=== PATIENT | male | born 1960 | race African-American/Black ===

== ENCOUNTER 2016-11-25 11:00 | Outpatient (CLI) | payer OTHER ==
--- NOTE | 2016-11-25 13:58 | SJPRAD ---
CHEST TWO VIEWS: HISTORY: Cough. COMPARISON: None. FINDINGS: Normal cardiac silhouette. The pulmonary vessels and hilum are normal. The costophrenic angles are clear. No masses or consolidation. No pneumothorax or osseous abnormalities. IMPRESSION: No acute cardiopulmonary process.. POS: [facility]
--- NOTE | 2016-11-25 14:00 | SJPRAD ---
TWO VIEWS RIGHT HIP: HISTORY: Right hip pain. COMPARISON: None. FINDINGS: The contour of the femoral head is maintained. Mild loss of inferior medial joint space height. No fracture. IMPRESSION: Mild loss of inferior medial right hip joint space height. No fracture. POS: [facility]
== END 2016-11-25 11:01 | disposition home or self-care (01) ==
LOC: MWLC RAD 11:00
PROVIDERS: ATTEND Family Medicine
DX: R05 Cough (principal); M25.551 Pain in right hip

== ENCOUNTER 2017-09-14 10:12 | Emergency (ER) | payer OTHER ==
[2017-09-14 11:04] LABS: Red Blood Cell (RBC) Count 4.74 mill/uL (4.70-6.10)
[2017-09-14 11:09] LABS: Mean Corpuscular Hemoglobin 31.7 pg (27.0-31.0); Mean Corpuscular Volume 86.1 fL (78.0-98.0)
[2017-09-14 11:10] LABS: Mean Corpuscular HGB CONC 36.9 g/dL (32.0-36.0); Platelet Count 187 thou/uL (130-400); RBC Distribution Width 12.1 % (11.5-14.5)
[2017-09-14 11:11] LABS: #Eosinphils 0.2 thou/uL (0.0-0.7); #Lymphocytes 2.6 thou/uL (1.20-3.40); #Monocytes 0.6 thou/uL (0.11-0.59); #Neutrophils 7.5 thou/uL (1.40-6.50); %Basophils 0.1 % (0.0-1.0); %Eosinophils 2.1 % (0.0-10.0); %Monocytes 5.6 % (0.0-10.0); %Neutrophils 68.2 % (42.0-75.0); Mean Platelet Volume 12.1 fL (7.4-10.4)
[2017-09-14 11:17] LABS: Albumin 4.3 g/dL (3.5-5.0); Anion Gap 15 mmol/L (10-20); BUN (Urea Nitrogen) 17 mg/dL (8.4-25.7); Bilirubin, Total 0.5 mg/dL (0.2-1.2); Calc. Creatinine Clearance 0 mL/min (70-130); Calcium 9.8 mg/dL (7.8-10.44); Carbon Dioxide 26 mmol/L (22-29); Chloride 92 mmol/L (98-107); Estimated GFR-MDRD 64; Globulin 2.9 g/dL (2.4-3.5); Protein, Total 7.2 g/dL (6.0-8.3); Sodium 128 mmol/L (136-145)
[2017-09-14 11:18] LABS: ALT (SGPT) 28 U/L (8-55); AST (SGOT) 24 U/L (5-34); Alkaline Phosphatase 94 U/L (40-150)
[2017-09-14 11:21] LABS: Glucose 673 mg/dL (70-105)
[2017-09-14] MEDS ORDERED: Insulin Regular 300 UNITS/3 ML VIAL ONE (11:32)
[2017-09-14] MEDS ORDERED: Water For Injection,Sterile 20 ML ONE (11:53)
[2017-09-14] MEDS ORDERED: Ziprasidone 20 MG VIAL ONE (11:53)
== END 2017-09-14 14:06 | disposition home or self-care (01) ==
LOC: ERS 10:12
DX: E10.65 Type 1 diabetes mellitus with hyperglycemia (principal); I10 Essential (primary) hypertension; E78.5 Hyperlipidemia, unspecified; F17.210 Nicotine dependence, cigarettes, uncomplicated; Z71.6 Tobacco abuse counseling; Z79.899 Other long term (current) drug therapy
CPT/HCPCS: 36415; 36416; 80053; 85025; 96361; 96372; 96374; 99406; J1815; J3486

== ENCOUNTER 2018-02-20 16:08 | Outpatient (CLI) | payer OTHER ==
--- NOTE | 2018-02-20 17:33 | RAD ---
CHEST TWO VIEWS: HISTORY: Reactive airways disease. COMPARISON: Chest radiograph from 11/25/2016. FINDINGS: The lungs are without focal confluent air space consolidation, pneumothorax, or effusion. The lungs are slightly hyperinflated. No acute osseous abnormality. IMPRESSION: Lung hyperinflation, suggesting obstructive pulmonary disease. POS: [facility]
== END 2018-02-20 16:09 | disposition home or self-care (01) ==
LOC: BICRAD 16:08
PROVIDERS: ATTEND Internal Medicine
DX: J45.50 Severe persistent asthma, uncomplicated (principal); R91.8 Other nonspecific abnormal finding of lung field
CPT/HCPCS: 71046

== ENCOUNTER 2018-05-14 14:31 | Outpatient (CLI) | payer OTHER ==
--- NOTE | 2018-05-14 15:59 | RAD ---
PA AND LATERAL CHEST: HISTORY: Cough. Reactive airways disease. COMPARISON: 02/20/2018 FINDINGS: Heart size is within normal limits. There are atherosclerotic changes of the aorta. The lungs are c lear of any infiltrative process. I do not appreciate any interval change since the prior exam. IMPRESSION: Some chronic appearing lung change. Stable examination. POS: [facility]
== END 2018-05-14 14:32 | disposition home or self-care (01) ==
LOC: BICRAD 14:31
PROVIDERS: ATTEND Internal Medicine
DX: J45.50 Severe persistent asthma, uncomplicated (principal)
CPT/HCPCS: 71046

== ENCOUNTER 2018-05-18 06:51 | Outpatient (CLI) | payer OTHER ==
--- NOTE | 2018-05-18 07:31 | ULT ---
ABDOMINAL AORTIC ULTRASOUND WITH ARITA SCALE AND DOPPLER COLOR FLOW IMAGING AND SPECTRAL ANALYSIS: CLINICAL HISTORY: Abdominal aortic screening evaluation. FINDINGS: The proximal abdominal aorta measures 2.2 cm in diameter, mid abdominal aorta 1.2 cm in diameter, and distal abdominal aorta 1.4 cm in diameter. There is scattered atherosclerosis. IMPRESSION: No sonographic evidence of abdominal aortic aneurysm is demonstrated. POS: [facility]
== END 2018-05-18 06:52 | disposition home or self-care (01) ==
LOC: SCSULT 06:51
PROVIDERS: ATTEND Internal Medicine
DX: J45.50 Severe persistent asthma, uncomplicated (principal); R09.89 Other specified symptoms and signs involving the circulatory and respiratory systems
CPT/HCPCS: 76706

== ENCOUNTER 2018-06-15 12:57 | Emergency (ER) | payer OTHER ==
[2018-06-15 13:30] LABS: #Eosinphils 0.1 thou/uL (0.0-0.7); #Lymphocytes 1.4 thou/uL (1.20-3.40); #Monocytes 0.4 thou/uL (0.11-0.59); #Neutrophils 5.6 thou/uL (1.40-6.50); %Basophils 0.5 % (0.0-1.0); %Eosinophils 0.7 % (0.0-10.0); %Lymphocytes 19.1 % (21.0-51.0); %Monocytes 5.4 % (0.0-10.0); %Neutrophils 74.3 % (42.0-75.0); Hemoglobin 15.1 g/dL (14.0-18.0); Mean Corpuscular HGB CONC 34.3 g/dL (32.0-36.0); Mean Corpuscular Hemoglobin 31.2 pg (27.0-31.0); Mean Corpuscular Volume 90.9 fL (78.0-98.0); Mean Platelet Volume 9.3 fL (7.4-10.4); Platelet Count 177 thou/uL (130-400); RBC Distribution Width 12.8 % (11.5-14.5); Red Blood Cell (RBC) Count 4.84 mill/uL (4.70-6.10); White Blood Cell (WBC) Count 7.5 thou/uL (4.8-10.8)
[2018-06-15 13:40] LABS: Carbon Dioxide 25 mmol/L (22-29)
[2018-06-15 13:52] LABS: ALT (SGPT) 19 U/L (8-55); AST (SGOT) 17 U/L (5-34); Acetaminophen Less than 6.0 mcg/mL (10.0-30.0); Albumin 4.2 g/dL (3.5-5.0); Alcohol Less than 10 mg/dL (Less than 10); Alkaline Phosphatase 101 U/L (40-150); Anion Gap 17 mmol/L (10-20); BUN (Urea Nitrogen) 24 mg/dL (8.4-25.7); Bilirubin, Total 0.5 mg/dL (0.2-1.2); Calc. Creatinine Clearance 0 mL/min (70-130); Calcium 9.2 mg/dL (7.8-10.44); Chloride 90 mmol/L (98-107); Estimated GFR-MDRD 65; Globulin 2.8 g/dL (2.4-3.5); Potassium 5.5 mmol/L (3.5-5.1); Salicylate Less than 8.0 mg/dL (15.0-30.0); Sodium 127 mmol/L (136-145)
[2018-06-15 13:55] LABS: Glucose 793 mg/dL (70-105)
--- NOTE | 2018-06-15 14:03 | RAD ---
PORTABLE CHEST 1 VIEW: DATE: 06/15/2018. TIME: 1:34 p.m. HISTORY: Hyperglycemia. FINDINGS: Comparison is made with the exam of 05/14/2018. The heart size is normal. The lungs are expanded without focal areas of consolidation, pneumothorace s, or pleural effusions. There are degenerative changes in the spine. IMPRESSION: No radiographic evidence of acute cardiopulmonary process. POS: [facility]
[2018-06-15] MEDS ORDERED: Insulin Regular 300 UNITS/3 ML VIAL ONE (14:24)
[2018-06-15 14:34] LABS: Bilirubin Negative (Negative); Blood, Urine Negative (Negative); Clarity CLEAR (Clear); Glucose, Urine (Dipstick) >=1000 mg/dL (Negative); Leukocyte Negative (Negative); Nitrite Negative (Negative); Protein, Urine (Dipstick) Negative (Neg-Trace); Specific Gravity, Urine 1.024 (1.002-1.036); Urobilinogen 0.2 mg/dL (0.2-1.0)
== END 2018-06-15 17:41 | disposition home or self-care (01) ==
LOC: ERS 12:57
DX: E10.65 Type 1 diabetes mellitus with hyperglycemia (principal); E78.5 Hyperlipidemia, unspecified; I10 Essential (primary) hypertension; F25.9 Schizoaffective disorder, unspecified; F60.0 Paranoid personality disorder; F17.210 Nicotine dependence, cigarettes, uncomplicated
CPT/HCPCS: 36415; 36416; 71045; 80053; 80307; 81003; 82010; 85025; 96361; 96374; J1815

== ENCOUNTER 2019-03-20 10:15 | Observation (INO) | payer OTHER ==
[2019-03-20 10:57] LABS: Base Excess-Venous 1.9 mmol/L (-2.0 to 3.0); Bicarbonate (HCO3v) 26.8 mmol/L (22.0-28.0); CO2 Tension (PvCO2) 41.7 mmHg (40.0-50.0); Calcium, Ionized 1.07 mmol/L (See Comments:); Chloride 93 mmol/L (98-107); Hemoglobin - Calc 14.7 g/dL (14.0-18.0); Potassium 4.8 mmol/L (3.5-5.1); Sodium 130 mmol/L (138-145); T. Carbon Dioxide 28.1 mmol/L (22.0-28.0); vO2 Saturation-calc 55.2 % (60.0-85.0)
[2019-03-20 11:05] LABS: #Basophils 0.1 thou/uL (0.0-0.2); #Eosinphils 0.1 thou/uL (0.0-0.7); #Lymphocytes 2.5 thou/uL (1.20-3.40); #Monocytes 0.4 thou/uL (0.11-0.59); #Neutrophils 5.2 thou/uL (1.40-6.50); %Basophils 1.4 % (0.0-1.0); %Eosinophils 1.1 % (0.0-10.0); %Lymphocytes 29.9 % (21.0-51.0); %Monocytes 5.2 % (0.0-10.0); %Neutrophils 62.3 % (42.0-75.0); Mean Corpuscular HGB CONC 36.2 g/dL (32.0-36.0); Mean Corpuscular Hemoglobin 31.3 pg (27.0-31.0); Mean Corpuscular Volume 86.5 fL (78.0-98.0); Mean Platelet Volume 9.1 fL (7.4-10.4); Platelet Count 192 thou/uL (130-400); RBC Distribution Width 12.4 % (11.5-14.5); Red Blood Cell (RBC) Count 4.47 mill/uL (4.70-6.10); White Blood Cell (WBC) Count 8.4 thou/uL (4.8-10.8)
[2019-03-20] MEDS ORDERED: Insulin Regular 300 UNITS/3 ML VIAL ONE (11:13)
[2019-03-20 11:31] LABS: Acetaminophen Less than 6.0 mcg/mL (10.0-30.0); Alcohol Less than 10 mg/dL (Less than 10); Salicylate Less than 8.0 mg/dL (15.0-30.0)
[2019-03-20 11:33] LABS: Phosphorus 2.7 mg/dL (2.3-4.7)
[2019-03-20 11:34] LABS: ALT (SGPT) 16 U/L (8-55); AST (SGOT) 19 U/L (5-34); Albumin 4.1 g/dL (3.5-5.0); Alkaline Phosphatase 78 U/L (40-110); Anion Gap 15 mmol/L (10-20); BUN (Urea Nitrogen) 19 mg/dL (8.4-25.7); Bilirubin, Total 0.5 mg/dL (0.2-1.2); CK (CPK) 73 U/L (30-200); Calc. Creatinine Clearance 0 mL/min (70-130); Calcium 9.2 mg/dL (7.8-10.44); Carbon Dioxide 26 mmol/L (22-29); Chloride 93 mmol/L (98-107); Estimated GFR-MDRD 80; Globulin 2.8 g/dL (2.4-3.5); Glucose 478 mg/dL (70-105); Lipase 74 U/L (8-78); Magnesium 2.2 mg/dL (1.6-2.6); Potassium 5.2 mmol/L (3.5-5.1); Protein, Total 6.9 g/dL (6.0-8.3); Sodium 129 mmol/L (136-145)
[2019-03-20 11:37] LABS: Medtox Reader # READER 4
[2019-03-20 11:38] LABS: Amphetamine Not Detected (NotDetected); Barbiturates Screen Not Detected (NotDetected); Benzodiazepine Screen Not Detected (NotDetected); Cocaine Metabolite Screen Not Detected (NotDetected); Medtox Control Line Valid? VALID (VALID); Methadone Not Detected (NotDetected); Methamphetamine Not Detected (NotDetected); Opiate Screen Not Detected (NotDetected); Oxycodone Screen Not Detected (NotDetected); Phencyclidine (PCP) Not Detected (NotDetected); THC/Cannabinoid Screen Not Detected (NotDetected); Tricyclic Screen Not Detected (NotDetected)
[2019-03-20 13:07] LABS: Bilirubin Negative (Negative); Blood, Urine Negative (Negative); Clarity Clear (Clear); Glucose, Urine (Dipstick) Greater than 1000 mg/dL (Negative); Leukocyte Negative Leu/uL (Negative); Nitrite Negative (Negative); Protein, Urine (Dipstick) Negative (Neg-Trace); Urobilinogen Normal mg/dL (Less than 2)
[2019-03-20] MEDS ORDERED: Nicotine 14 MG PATCH TOP SCH (17:00)
[2019-03-20] MEDS ORDERED: Acetaminophen 325 MG TAB PO PRN (18:16)
[2019-03-20] MEDS ORDERED: Dextrose 5% in Water 1,000 ML IV PRN (18:16)
[2019-03-20] MEDS ORDERED: Dextrose 50% Abboject 50 ML SYRINGE SLOW IVP PRN (18:16)
[2019-03-20] MEDS ORDERED: Ondansetron PF 4 MG/2 ML Vial IVP PRN (18:16)
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
[2019-03-20 19:28] VITALS: BMI 18.1
[2019-03-20] MEDS: Sodium Chloride 0.9% 1,000 ML IV SCH (20:35)
[2019-03-20] MEDS: HumaLOG 300 UNITS/3 ML VIAL SC PRN (20:37)
[2019-03-20] MEDS ORDERED: INSULIN LISPRO 5 UNIT SQ SCH (21:00)
[2019-03-20] MEDS ORDERED: Insulin Glargine 15 UNITS in Pre-Filled Syringe 1 EACH SC SCH (21:00)
[2019-03-20] MEDS ORDERED: Simvastatin 5 MG TAB PO SCH (21:00)
[2019-03-21 05:48] LABS: #Basophils 0.1 thou/uL (0.0-0.2); #Eosinphils 0.1 thou/uL (0.0-0.7); #Lymphocytes 2.4 thou/uL (1.20-3.40); #Monocytes 0.5 thou/uL (0.11-0.59); #Neutrophils 4.4 thou/uL (1.40-6.50); %Basophils 1.6 % (0.0-1.0); %Eosinophils 1.2 % (0.0-10.0); %Lymphocytes 31.9 % (21.0-51.0); %Monocytes 6.5 % (0.0-10.0); %Neutrophils 58.8 % (42.0-75.0); Hemoglobin 13.6 g/dL (14.0-18.0); Mean Corpuscular HGB CONC 35.4 g/dL (32.0-36.0); Mean Corpuscular Hemoglobin 30.5 pg (27.0-31.0); Mean Corpuscular Volume 86.2 fL (78.0-98.0); Mean Platelet Volume 9.2 fL (7.4-10.4); Platelet Count 172 thou/uL (130-400); RBC Distribution Width 12.6 % (11.5-14.5); Red Blood Cell (RBC) Count 4.47 mill/uL (4.70-6.10); White Blood Cell (WBC) Count 7.5 thou/uL (4.8-10.8)
[2019-03-21 06:07] LABS: Anion Gap 12 mmol/L (10-20); BUN (Urea Nitrogen) 11 mg/dL (8.4-25.7); Calc. Creatinine Clearance 81 mL/min (70-130); Calcium 8.2 mg/dL (7.8-10.44); Carbon Dioxide 25 mmol/L (22-29); Chloride 101 mmol/L (98-107); Estimated GFR-MDRD Greater than 90; Glucose 167 mg/dL (70-105); Potassium 3.8 mmol/L (3.5-5.1); Sodium 134 mmol/L (136-145)
[2019-03-21] MEDS: HumaLOG 300 UNITS/3 ML VIAL SC PRN ×3 (06:31→16:41)
[2019-03-21] MEDS: Sodium Chloride 0.9% 1,000 ML IV SCH (08:05)
[2019-03-21] MEDS ORDERED: Losartan 25 MG TAB PO SCH (09:00)
[2019-03-21] MEDS ORDERED: Non-Formulary Item 1 EACH (Insulin Glargine,Hum.Rec.Anlog [Toujeo Solostar] 15 UNITS) SC SCH (09:00)
[2019-03-21] MEDS ORDERED: Enoxaparin Sodium 40 MG/0.4 ML SYRINGE SC SCH (09:00)
[2019-03-21] MEDS ORDERED: Insulin Glargine 10 UNITS in Pre-Filled Syringe 1 EACH SC SCH (09:15)
[2019-03-21 11:01] LABS: Hemoglobin A1c Greater than 14.0 % (4.0-6.0)
[2019-03-21] MEDS ORDERED: Nicotine 14 MG PATCH TD SCH (17:00)
[2019-03-21 17:31] VITALS: BP 157/83; TEMP 97.9
--- NOTE | 2019-03-21 19:19 | DIS ---
DATE OF ADMISSION: 03/20/2019 DATE OF DISCHARGE: 03/21/2019 PRIMARY CARE PROVIDER: Dr. Regan Emerson. DISCHARGE DIAGNOSES: 1. Hyperglycemia. 2. Homicidal ideation. CONDITION OF PATIENT ON THE DAY OF DISCHARGE: Stable. I assessed Mr. Nation on the day of discharge. He denies any chest pain or shortness of breath. Vital signs are stable. S1 and S2 are heard, regular. Lungs are clear to auscultation bilaterally. DISCHARGE MEDICATIONS: 1. Lantus insulin 15 units daily. 2. Humalog insulin 5 units three times a day. 3. Losartan 25 mg daily. 4. Simvastatin 10 mg at bedtime. 5. Nicotine 14 mg patch daily. HOSPITAL COURSE: Mr. Nation is a pleasant 58-year-old gentleman who was admitted to [facility] on 03/20/2019, for homicidal ideation and hyperglycemia. Blood sugars improved after he received insulin. He was evaluated by [facility]. He is being discharged to [facility] for further management. DIET: Diabetic. ACTIVITY: Ad ciro. LABORATORY DATA: On the day of discharge, he has sodium 134, potassium 3.8, creatinine 0.77, hemoglobin A1c greater than 14.0. White count 7500, hemoglobin 13.6, and platelet count 172,000. Many thanks for allowing me to participate in your patient's care. Please feel free to contact me with any questions or concerns. DISCHARGE DESTINATION: [facility]. Job ID: [id number]
== END 2019-03-21 17:27 ==
LOC: ERS 10:15 → T4-B 19:12
PROVIDERS: ADMIT Internal Medicine; ATTEND Internal Medicine
DX: E10.65 Type 1 diabetes mellitus with hyperglycemia (principal); R45.850 Homicidal ideations; E78.5 Hyperlipidemia, unspecified; F25.9 Schizoaffective disorder, unspecified; F17.210 Nicotine dependence, cigarettes, uncomplicated; Z79.4 Long term (current) use of insulin; Z79.899 Other long term (current) drug therapy; Z88.0 Allergy status to penicillin; Z91.14 Patient's other noncompliance with medication regimen
CPT/HCPCS: 36415; 36416; 80048; 80053; 80306; 80307; 81003; 82010; 82330; 82550; 82803; 83036; 83690; 83735; 84100; 84484; 85025; 93005; 96360; 96361; 96372; G0378; J1650; J1815

== ENCOUNTER 2019-04-14 09:53 | Inpatient (IN) | payer OTHER ==
--- NOTE | 2019-04-14 10:19 | RAD ---
EXAM: Portable chest PROVIDED CLINICAL HISTORY: Cough COMPARISON: 06/15/2018 FINDINGS: Cardiac and mediastinal silhouette is within normal limits. No focal consolidation, pleural fluid or pneumothorax evident. IMPRESSION: No evidence for an acute cardiopulmonary process.
--- NOTE | 2019-04-14 10:28 | CT ---
CT BRAIN WITHOUT CONTRAST: HISTORY: Altered mental status. COMPARISON: 06/30/2014 FINDINGS: The ventricular and cisternal system is slightly prominent for age. There is decreased attenuation in the periventricular white matter, consistent with chronic white matter change. No signs of intracere bral hemorrhage or extraaxial fluid collection. The mastoid air cells are clear. There is some mild e thmoid air cell mucosal change. IMPRESSION: No acute intracranial abnormalities. POS: [facility]
[2019-04-14 11:21] LABS: #Basophils 0.1 thou/uL (0.0-0.2); #Eosinphils 0.1 thou/uL (0.0-0.7); #Lymphocytes 1.5 thou/uL (1.20-3.40); #Monocytes 0.5 thou/uL (0.11-0.59); #Neutrophils 6.9 thou/uL (1.40-6.50); %Basophils 0.8 % (0.0-1.0); %Lymphocytes 16.4 % (21.0-51.0); %Monocytes 5.3 % (0.0-10.0); %Neutrophils 76.4 % (42.0-75.0); Hemoglobin 15.5 g/dL (14.0-18.0); Mean Corpuscular HGB CONC 35.7 g/dL (32.0-36.0); Mean Corpuscular Hemoglobin 31.3 pg (27.0-31.0); Mean Corpuscular Volume 87.5 fL (78.0-98.0); Mean Platelet Volume 8.9 fL (7.4-10.4); Platelet Count 204 thou/uL (130-400); RBC Distribution Width 12.8 % (11.5-14.5); Red Blood Cell (RBC) Count 4.95 mill/uL (4.70-6.10)
[2019-04-14 11:32] LABS: Bilirubin Negative (Negative); Blood, Urine Negative (Negative); Clarity Clear (Clear); Glucose, Urine (Dipstick) Greater than 1000 mg/dL (Negative); Leukocyte Negative Leu/uL (Negative); Nitrite Negative (Negative); Protein, Urine (Dipstick) Negative (Neg-Trace); Urobilinogen Normal mg/dL (Less than 2)
[2019-04-14 11:42] LABS: ALT (SGPT) 13 U/L (8-55); AST (SGOT) 16 U/L (5-34); Albumin 4.2 g/dL (3.5-5.0); Alkaline Phosphatase 98 U/L (40-110); Anion Gap 18 mmol/L (10-20); BUN (Urea Nitrogen) 14 mg/dL (8.4-25.7); Calc. Creatinine Clearance 0 mL/min (70-130); Calcium 9.3 mg/dL (7.8-10.44); Carbon Dioxide 26 mmol/L (22-29); Chloride 93 mmol/L (98-107); Estimated GFR-MDRD 79; Globulin 2.8 g/dL (2.4-3.5); Glucose 475 mg/dL (70-105); Potassium 5.6 mmol/L (3.5-5.1); Sodium 131 mmol/L (136-145)
[2019-04-14 12:50] LABS: Base Excess-Venous -0.6 mmol/L (-2.0 to 3.0); Bicarbonate (HCO3v) 27.4 mmol/L (22.0-28.0); CO2 Tension (PvCO2) 58.5 mmHg (40.0-50.0); Calcium, Ionized 1.13 mmol/L (See Comments:); Chloride 97 mmol/L (98-107); Hemoglobin - Calc 13.9 g/dL (14.0-18.0); Potassium 4.8 mmol/L (3.5-5.1); Sodium 133 mmol/L (138-145); T. Carbon Dioxide 29.2 mmol/L (22.0-28.0); vO2 Saturation-calc 77.5 % (60.0-85.0)
[2019-04-14] MEDS ORDERED: Insulin Regular 300 UNITS/3 ML VIAL ONE (13:19)
[2019-04-14] MEDS ORDERED: Insulin Regular 100 units/100 ml in NS IVPB SCH (13:30)
[2019-04-14] MEDS ORDERED: Senokot S 8.6-50 MG TAB PO PRN (14:46)
[2019-04-14] MEDS ORDERED: Ondansetron PF 4 MG/2 ML Vial IVP PRN (14:46)
[2019-04-14] MEDS ORDERED: NS 0.9% w/ 20 MEQ KCL 1,000 ML IV PRN ×2 (14:49)
[2019-04-14] MEDS ORDERED: Sodium Chloride 0.9% 1,000 ML IV PRN ×4 (14:49)
[2019-04-14] MEDS ORDERED: D5 1/2 NS w/20 mEq KCL 1,000 ML IV PRN (14:49)
[2019-04-14] MEDS ORDERED: Dextrose 5 %-0.45 % NaCl 1,000 ML IV PRN (14:49)
[2019-04-14] MEDS ORDERED: CCU Electrolyte Replacement 1 EACH IVPB ONE (14:49)
[2019-04-14] MEDS ORDERED: HUMULIN R 100 UNITS in Sodium Chloride 0.9% 100 ML IVPB SCH (15:00)
[2019-04-14] MEDS ORDERED: CCU ELECTROLYTE REPLACEMENT PROTOCOL FS PRN (15:11)
[2019-04-14] MEDS ORDERED: Potassium Chloride 20 MEQ TAB PO PRN (15:11)
[2019-04-14] MEDS ORDERED: Magnesium Oxide 400 MG TAB PO PRN ×2 (15:11)
[2019-04-14] MEDS ORDERED: Potassium Chloride 40 MEQ in Sodium Chloride 0.9% 250 ML 250 ML IVPB PRN (15:11)
[2019-04-14] MEDS ORDERED: Potassium Phosphate 12 MMOL in Sodium Chloride 0.9% 250 ML 250 ML IV PRN (15:11)
[2019-04-14] MEDS ORDERED: Magnesium 2 GM/50 ML 2 GM in Premix Bag 1 BAG IVPB PRN (15:11)
[2019-04-14] MEDS ORDERED: Potassium Chloride 40 MEQ in Premix Bag 1 BAG IVPB PRN (15:11)
[2019-04-14] MEDS ORDERED: Potassium Phosphate 15 MMOL in Sodium Chloride 0.9% 250 ML 250 ML IV PRN (15:11)
[2019-04-14] MEDS ORDERED: Potassium Phosphate 9 MMOL in Sodium Chloride 0.9% 100 ML IVPB PRN (15:11)
[2019-04-14] MEDS ORDERED: PHOS-NAK 1 PKT PACK PO PRN ×2 (15:11)
[2019-04-14 16:20] LABS: Anion Gap 11 mmol/L (10-20); BUN (Urea Nitrogen) 13 mg/dL (8.4-25.7); Calc. Creatinine Clearance 0 mL/min (70-130); Calcium 8.6 mg/dL (7.8-10.44); Carbon Dioxide 28 mmol/L (22-29); Chloride 102 mmol/L (98-107); Estimated GFR-MDRD Greater than 90; Glucose 63 mg/dL (70-105); Sodium 137 mmol/L (136-145)
[2019-04-14] MEDS ORDERED: Dextrose 50 % In Water 50 ML SYRINGE ONE (16:33)
[2019-04-14] MEDS: Heparin 5,000 UNITS/ML VIAL SC SCH ×2 (16:53→21:39)
[2019-04-14] MEDS: Nicotine 14 MG PATCH TD SCH (17:51)
[2019-04-14 19:58] LABS: Anion Gap 14 mmol/L (10-20); BUN (Urea Nitrogen) 11 mg/dL (8.4-25.7); Calc. Creatinine Clearance 74 mL/min (70-130); Calcium 8.5 mg/dL (7.8-10.44); Carbon Dioxide 23 mmol/L (22-29); Chloride 101 mmol/L (98-107); Estimated GFR-MDRD Greater than 90; Glucose 175 mg/dL (70-105); Potassium 4.2 mmol/L (3.5-5.1); Sodium 134 mmol/L (136-145)
[2019-04-14] MEDS ORDERED: Insulin Glargine 15 UNITS in Pre-Filled Syringe 1 EACH SC SCH (21:00)
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
[2019-04-14] MEDS: Simvastatin 5 MG TAB PO SCH (21:39)
[2019-04-14] MEDS: Insulin Regular 300 UNITS/3 ML VIAL SC PRN (21:40)
[2019-04-14 23:43] LABS: Anion Gap 10 mmol/L (10-20); BUN (Urea Nitrogen) 13 mg/dL (8.4-25.7); Calc. Creatinine Clearance 69 mL/min (70-130); Calcium 8.4 mg/dL (7.8-10.44); Carbon Dioxide 26 mmol/L (22-29); Chloride 103 mmol/L (98-107); Estimated GFR-MDRD Greater than 90; Glucose 179 mg/dL (70-105); Potassium 4.1 mmol/L (3.5-5.1); Sodium 135 mmol/L (136-145)
[2019-04-15 03:46] LABS: #Basophils 0.1 thou/uL (0.0-0.2); #Eosinphils 0.1 thou/uL (0.0-0.7); #Lymphocytes 2.5 thou/uL (1.20-3.40); #Monocytes 0.5 thou/uL (0.11-0.59); #Neutrophils 5.1 thou/uL (1.40-6.50); %Basophils 0.9 % (0.0-1.0); %Lymphocytes 30.1 % (21.0-51.0); %Monocytes 5.6 % (0.0-10.0); %Neutrophils 62.5 % (42.0-75.0); Hemoglobin 13.2 g/dL (14.0-18.0); Mean Corpuscular HGB CONC 36.7 g/dL (32.0-36.0); Mean Corpuscular Hemoglobin 31.9 pg (27.0-31.0); Mean Corpuscular Volume 87.1 fL (78.0-98.0); Mean Platelet Volume 9.1 fL (7.4-10.4); Platelet Count 205 thou/uL (130-400); RBC Distribution Width 12.8 % (11.5-14.5); Red Blood Cell (RBC) Count 4.14 mill/uL (4.70-6.10); White Blood Cell (WBC) Count 8.2 thou/uL (4.8-10.8)
[2019-04-15 04:07] LABS: Anion Gap 10 mmol/L (10-20); BUN (Urea Nitrogen) 15 mg/dL (8.4-25.7); Calc. Creatinine Clearance 73 mL/min (70-130); Carbon Dioxide 28 mmol/L (22-29); Chloride 102 mmol/L (98-107); Estimated GFR-MDRD Greater than 90; Glucose 100 mg/dL (70-105); Potassium 4.2 mmol/L (3.5-5.1); Sodium 136 mmol/L (136-145)
[2019-04-15] MEDS: Insulin Regular 300 UNITS/3 ML VIAL SC PRN ×2 (06:15→14:00)
[2019-04-15] MEDS: Losartan 25 MG TAB PO SCH (08:56)
[2019-04-15] MEDS: Heparin 5,000 UNITS/ML VIAL SC SCH ×3 (08:56→21:47)
[2019-04-15] MEDS: Nicotine 14 MG PATCH TD SCH ×2 (14:04→19:04)
[2019-04-15 14:51] VITALS: BMI 16.2
--- NOTE | 2019-04-15 16:01 | PDOC.HOSPP ---
- Subjective Encounter Date: 04/15/19 Encounter Time: 12:50 Subjective: doing well, tolerating the diet, BG improved. - Objective Vital Signs & Weight: Vital Signs (12 hours) Temp Pulse Ox 04/15/19 15:30 98.6 F 04/15/19 11:15 98.4 F 04/15/19 07:41 98 04/15/19 07:12 99.4 F 04/15/19 04:00 99.7 F H Weight Admit Weight 106 lb Weight 107 lb 1.6 oz Most Recent Monitor Data Heart Rate from ECG 85 NIBP 135/79 NIBP BP-Mean 97 Respiration from ECG 15 SpO2 99 I&O: 04/14/19 04/15/19 04/16/19 06:59 06:59 06:59 Intake Total 2210 550 Output Total 800 450 Balance 1410 100 Result Diagrams: 04/15/19 03:00 04/15/19 03:00 Additional Labs: Accuchecks 04/15/19 04/15/19 04/15/19 14:00 10:07 08:04 POC Glucose 359 H 103 183 H 04/15/19 04/15/19 04/15/19 05:49 04:07 01:59 POC Glucose 322 H 138 H 129 H 04/15/19 04/14/19 04/14/19 00:00 22:29 20:30 POC Glucose 103 314 H 363 H 04/14/19 04/14/19 04/14/19 18:49 17:59 17:15 POC Glucose 170 H 121 H 74 04/14/19 16:32 POC Glucose 64 L Hospitalist ROS - Medication Medications: Active Medications Generic Name Dose Route Start Last Admin Trade Name Freq PRN Reason Stop Dose Admin Heparin Sodium (Porcine) 5,000 units 04/14/19 15:00 04/15/19 14:04 Heparin SC 5,000 units TID MARQUITA Administration Dextrose/Sodium Chloride 1,000 mls @ 50 mls/hr 04/14/19 14:49 04/15/19 04:05 D5 1/2 Ns IV 1,000 mls .Q20H PRN Administration Step 4 of DKA Protocol Protocol Insulin Glargine 15 units/ 0.15 mls @ 0 mls/hr 04/14/19 21:00 04/14/19 18:43 Miscellaneous Medication SC 0.15 mls HS MARQUITA Administration Insulin Human Regular 0 units 04/14/19 19:32 04/15/19 14:00 Humulin R SC 10 unit .MODERATE SLIDING SC PRN Administration MODERATE SLIDING SCALE Protocol Losartan Potassium 25 mg 04/15/19 09:00 04/15/19 08:56 Cozaar PO 25 mg DAILY MARQUITA Administration Nicotine 14 mg 04/14/19 15:00 04/15/19 14:04 Nicoderm Patch TD 14 mg Q24HR MARQUITA Administration Simvastatin 10 mg 04/14/19 21:00 04/14/19 21:39 Zocor PO 10 mg HS MARQUITA Administration - Exam General Appearance: NAD, awake alert Eye: PERRL, anicteric sclera ENT: normocephalic atraumatic, no oropharyngeal lesions Neck: supple Heart: RRR Respiratory: CTAB Gastrointestinal: non-tender, normal bowel sounds Hosp A/P - Plan DKA -off insulin drip -dc 1/2 NS as pt on PO intake and doing well DM2 -uncont'd -a1c > 14 -sister told that he is not taking at home -though his cr is normal now, not sure he would follow w.. pills/metformin + insulin better/tighter BG control w.. A1c of 14. needs diabetic education and close fw in OP setting.
[2019-04-15] MEDS ORDERED: Insulin Glargine 15 UNITS in Pre-Filled Syringe SC SCH (21:00)
[2019-04-15] MEDS ORDERED: Dextrose 5% in Water 1,000 ML IV PRN (21:13)
[2019-04-15] MEDS ORDERED: Dextrose 50% Abboject 50 ML SYRINGE SLOW IVP PRN (21:13)
[2019-04-15] MEDS: Simvastatin 5 MG TAB PO SCH (21:46)
[2019-04-16] MEDS ORDERED: Insulin Regular 300 UNITS/3 ML VIAL SC PRN (00:13)
[2019-04-16 00:33] VITALS: BP 155/96
[2019-04-16] MEDS: Insulin Regular 300 UNITS/3 ML VIAL SC PRN ×2 (06:31→10:52)
[2019-04-16] MEDS: Heparin 5,000 UNITS/ML VIAL SC SCH (07:46)
[2019-04-16] MEDS: Losartan 25 MG TAB PO SCH (07:47)
[2019-04-16 08:05] VITALS: TEMP 98.8
[2019-04-16] MEDS ORDERED: Insulin Glargine 15 UNITS in Pre-Filled Syringe SC SCH (09:00)
[2019-04-16] MEDS ORDERED: Fentanyl 100 MCG/2 ML VIAL ONE (09:33)
--- NOTE | 2019-04-17 05:30 | PQF ---
[employer] Crystal Reports Udayomari WileyCHUCKIE GENO WINSTON [phone] [facility]- 6 [phone] CLINICAL DOCUMENTATION CLARIFICATION FORM: POST DISCHARGE Addendum to original discharge summary date: ____ Late entry note date: __ DATE: 04/17/2019 ATTN: GENO GILLETTE Please exercise your independent, professional judgment in responding to the clarification form. Clinical indicators are provided on the bottom of this form for your review Please check appropriate box(s): BMI < 19 with associated diagnosis of: (check one) [x ] Under Weight [ ] Weight Loss [ ] Other diagnosis [ ] Unable to determine In addition, please specify: Present on Admission (POA): [ ] Yes [ ] No [ ] Unable to Determine For continuity of documentation, please document condition throughout progress notes and discharge summary. Thank You. BMI < 18.5Under weight = 18.5 - 24.9Healthy = 25.0 - 29.9Slightly Overweight = 30.0 - 34.9Obese/Class I = 35.0 - 39.9Severely Obese/Class II = 40.0 and OverMorbidly Obese/Class III CLINICAL INDICATORS - SIGNS / SYMPTOMS / LABS BMI = 16.3 Hypokalemia - Documented in H&P on 04/14 by GENO GILLETTE Medication noncompliance - Documented in H&P on 04/14 by GENO GILLETTE RISK FACTORS DKA - Documented in H&P on 04/14 by GENO GILLETTE HTN TREATMENTS: Patient on PO intake and doing well - Documented in Hospital PNs on 04/15 by GENO ALMEIDA need close followup in OP setting - Documented in Hospital PNs on 04/15 by GENO ALMEIDA (This form is maintained as a part of the permanent medical record) 2014 [employer] All Rights Reserved [email or web address]
--- NOTE | 2019-04-17 10:21 | PQF ---
DATE: 04-16-19 ATTN: DR. GENO GILLETTE Please exercise your independent, professional judgment in responding to the clarification form. Clinical indicators are provided on the bottom of this form for your review Please check appropriate box(s): [ ] Encephalopathy: Type: [ ] Acute [ ] Subacute [ ] Chronic Etiology: [ ] Metabolic [ ] Toxic [ ] Other (please specify) [ ] Transient Alteration of Awareness [ ] Other diagnosis [x ] Unable to determine In addition, please specify: Present on Admission (POA): [ ] Yes [ ] No [ ] Unable to determine For continuity of documentation, please document condition throughout progress notes and discharge summary. Thank You. CLINICAL INDICATORS - SIGNS / SYMPTOMS / LABS / RESULTS AND LOCATION IN EMR: ER NOTES 04-14-19: CONFUSION, MENTAL STATUS CHANGES, HX OF DIABETES, SCHIZOPHRENIA H&P 04-14-19: ADMIT WITH DKA. HE IS ALERT AND ORIENTED X2. HE IS NOT VERY CLEAR ABOUT HIS CLINICAL CONDITION. RISK FACTORS / RESULTS AND LOCATION IN EMR: H&P 04-14-19: ADMIT WITH DKA. TREATMENTS / RESULTS AND LOCATION IN EMR: PN DR. GENO GILLETTE 04-14-19: OFF INSULIN DRIP, D/C 1/2 NS PT ON PO INTAKE AND DOING WELL, NEEDS DIABETIC EDUCATION (This form is maintained as a part of the permanent medical record) 2014 [employer] All Rights Reserved JOSE RAFAEL [email or web address] Office: [phone] [facility] HOSPITALAshley
== END 2019-04-16 14:38 | disposition home or self-care (01) | DRG 638 ==
LOC: ERS 09:53 → IMCU/EMU 14:12
PROVIDERS: ADMIT Internal Medicine; ATTEND Internal Medicine
DX: E11.10 Type 2 diabetes mellitus with ketoacidosis without coma (principal); Z68.1 Body mass index [BMI] 19.9 or less, adult; F17.210 Nicotine dependence, cigarettes, uncomplicated; F20.9 Schizophrenia, unspecified; E87.5 Hyperkalemia; I10 Essential (primary) hypertension; Z79.899 Other long term (current) drug therapy; R63.6 Underweight; Z91.14 Patient's other noncompliance with medication regimen
CPT/HCPCS: 36415; 36416; 70450; 71045; 80048; 80053; 81003; 82010; 82330; 82803; 85025; 93005; J1644; J1815; J3010; J3490; J7042

== ENCOUNTER 2019-07-03 15:18 | Inpatient (IN) | payer OTHER ==
--- NOTE | 2019-07-03 16:08 | RAD ---
SINGLE VIEW OF THE CHEST: 07/03/19 COMPARISON: 04/14/19 HISTORY: Dyspnea. Screening for COVID. Fever for two weeks and cough. FINDINGS: Single view of the chest shows a normal sized cardiomediastinal silhouette with atherosclerotic calci fications in the aorta. There is no evidence of consolidation, mass or pleural effusion. There is at least one healing left rib fracture. IMPRESSION: No evidence of acute cardiopulmonary disease. POS: [facility]
[2019-07-03 16:09] LABS: #Basophils 0.1 thou/uL (0.0-0.2); #Eosinphils 0.1 thou/uL (0.0-0.7); #Lymphocytes 1.9 thou/uL (1.20-3.40); #Monocytes 0.5 thou/uL (0.11-0.59); #Neutrophils 5.8 thou/uL (1.40-6.50); %Basophils 0.8 % (0.0-1.0); %Eosinophils 0.7 % (0.0-10.0); %Lymphocytes 22.4 % (21.0-51.0); %Monocytes 5.5 % (0.0-10.0); %Neutrophils 70.6 % (42.0-75.0); Hemoglobin 13.7 g/dL (14.0-18.0); Mean Corpuscular HGB CONC 36.3 g/dL (32.0-36.0); Mean Corpuscular Hemoglobin 31.8 pg (27.0-31.0); Mean Corpuscular Volume 87.5 fL (78.0-98.0); Mean Platelet Volume 9.5 fL (7.4-10.4); Platelet Count 153 thou/uL (130-400); RBC Distribution Width 12.3 % (11.5-14.5); Red Blood Cell (RBC) Count 4.31 mill/uL (4.70-6.10); White Blood Cell (WBC) Count 8.2 thou/uL (4.8-10.8)
[2019-07-03 16:13] LABS: Bilirubin Negative (Negative); Blood, Urine Negative (Negative); Clarity Clear (Clear); Glucose, Urine (Dipstick) Greater than 1000 mg/dL (Negative); Leukocyte Negative Leu/uL (Negative); Nitrite Negative (Negative); Protein, Urine (Dipstick) Negative (Neg-Trace); Urobilinogen Normal mg/dL (Less than 2)
[2019-07-03 16:16] LABS: ALT (SGPT) 56 U/L (8-55); AST (SGOT) 38 U/L (5-34); Albumin 3.9 g/dL (3.5-5.0); Alkaline Phosphatase 111 U/L (40-110); Anion Gap 17 mmol/L (10-20); BUN (Urea Nitrogen) 23 mg/dL (8.4-25.7); Bilirubin, Total 0.5 mg/dL (0.2-1.2); Calc. Creatinine Clearance 0 mL/min (70-130); Calcium 8.9 mg/dL (7.8-10.44); Carbon Dioxide 24 mmol/L (22-29); Chloride 91 mmol/L (98-107); Estimated GFR-MDRD 71; Globulin 2.5 g/dL (2.4-3.5); Lipase 109 U/L (8-78); Potassium 4.9 mmol/L (3.5-5.1); Protein, Total 6.4 g/dL (6.0-8.3); Sodium 127 mmol/L (136-145)
[2019-07-03 16:19] LABS: Glucose 634 mg/dL (70-105)
[2019-07-03 16:21] LABS: Base Excess-Venous 0.7 mmol/L (-2.0 to 3.0); Bicarbonate (HCO3v) 24.7 mmol/L (22.0-28.0); CO2 Tension (PvCO2) 36.8 mmHg (40.0-50.0); Calcium, Ionized 0.76 mmol/L (See Comments:); Chloride 91 mmol/L (98-107); Hemoglobin - Calc 12.3 g/dL (14.0-18.0); Potassium 4.3 mmol/L (3.5-5.1); Sodium 126 mmol/L (138-145); T. Carbon Dioxide 25.8 mmol/L (22.0-28.0); vO2 Saturation-calc 99.2 % (60.0-85.0)
[2019-07-03] MEDS ORDERED: Insulin Regular 100 units/100 ml in NS IVPB SCH (16:45)
[2019-07-03] MEDS ORDERED: D5 1/2 NS w/20 mEq KCL 0 ML ONE (17:10)
[2019-07-03] MEDS ORDERED: NS 0.9% w/ 20 MEQ KCL 1,000 ML IV SCH (17:30)
[2019-07-03] MEDS ORDERED: Ondansetron PF 4 MG/2 ML Vial IVP PRN (19:03)
[2019-07-03] MEDS ORDERED: Ondansetron ODT 4 MG TAB PO PRN (19:03)
[2019-07-03] MEDS ORDERED: Sodium Chloride 0.9% 1,000 ML IV PRN ×4 (19:03)
[2019-07-03] MEDS ORDERED: Acetaminophen 500 MG TAB PO PRN (19:03)
[2019-07-03] MEDS ORDERED: CCU Electrolyte Replacement 1 EACH IVPB ONE (19:03)
[2019-07-03] MEDS ORDERED: NS 0.9% w/ 20 MEQ KCL 1,000 ML IV PRN ×2 (19:03)
[2019-07-03] MEDS ORDERED: HUMULIN R 100 UNITS in Sodium Chloride 0.9% 100 ML IVPB SCH (19:03)
[2019-07-03] MEDS ORDERED: Dextrose 5 %-0.45 % NaCl 1,000 ML IV PRN (19:03)
[2019-07-03] MEDS ORDERED: hydrALAZINE 20 MG/ML VIAL SLOW IVP PRN (19:03)
[2019-07-03] MEDS ORDERED: Potassium Chloride 40 MEQ in Sodium Chloride 0.9% 250 ML 250 ML IVPB PRN (19:10)
[2019-07-03] MEDS ORDERED: Potassium Phosphate 9 MMOL in Sodium Chloride 0.9% 100 ML IVPB PRN (19:10)
[2019-07-03] MEDS ORDERED: Magnesium Oxide 400 MG TAB PO PRN ×2 (19:10)
[2019-07-03] MEDS ORDERED: Magnesium 2 GM/50 ML 2 GM in Premix Bag 1 BAG IVPB PRN (19:10)
[2019-07-03] MEDS ORDERED: Potassium Chloride 20 MEQ TAB PO PRN (19:10)
[2019-07-03] MEDS ORDERED: CCU ELECTROLYTE REPLACEMENT PROTOCOL FS PRN (19:10)
[2019-07-03] MEDS ORDERED: Potassium Chloride 40 MEQ in Premix Bag 1 BAG IVPB PRN (19:10)
[2019-07-03] MEDS ORDERED: PHOS-NAK 1 PKT PACK PO PRN ×2 (19:10)
[2019-07-03] MEDS ORDERED: Potassium Phosphate 12 MMOL in Sodium Chloride 0.9% 250 ML 250 ML IV PRN (19:10)
[2019-07-03] MEDS ORDERED: Potassium Phosphate 15 MMOL in Sodium Chloride 0.9% 250 ML 250 ML IV PRN (19:10)
[2019-07-03] MEDS: Famotidine/PF 20 mg/2ml Vial SLOW IVP SCH (19:25)
[2019-07-03] MEDS: D5 1/2 NS w/20 mEq KCL 1,000 ML IV PRN (19:25)
[2019-07-03 20:06] LABS: Anion Gap 14 mmol/L (10-20); BUN (Urea Nitrogen) 16 mg/dL (8.4-25.7); Calc. Creatinine Clearance 65 mL/min (70-130); Calcium 8.5 mg/dL (7.8-10.44); Carbon Dioxide 22 mmol/L (22-29); Chloride 100 mmol/L (98-107); Estimated GFR-MDRD Greater than 90; Glucose 224 mg/dL (70-105); Potassium 4.8 mmol/L (3.5-5.1); Sodium 131 mmol/L (136-145)
--- NOTE | 2019-07-03 20:17 | HP ---
PRIMARY CARE PROVIDER: [place], [place]. CHIEF COMPLAINT: Fever, cough, and confusion. HISTORY OF PRESENT ILLNESS: This is a 59-year-old male, who presented to [facility] Emergency Department in transfer from [facility] in [place], [place] after the patient initially presented to the [facility] with complaints of fever up to 2 weeks with cough, increased aggression and disorientation. The history is obtained after discussions with the emergency room attending as well as review of the electronic medical record in the emergency room and discussions with the patient, who provides little historical information. The patient was initially oriented to place, but did not know what day or year it was when interrogated in the emergency room. The patient was also noted with elevated glucose values up to 600 with a positive beta hydroxybutyrate level concerning for diabetic ketoacidosis. The patient was initially managed in the emergency room with IV fluid resuscitation in addition to initiation of insulin infusion at 5 units/hour. The patient states he lives with his sister in the [place] area and typically stays in his room. The patient states he has ambulated and visited a local convenience store, but denied any travel history. The ER reports a questionable history of fever over the last 2 weeks with increased cough and congestion. The patient currently denies any specific cough or congestion, but does state he felt warm. The patient denied any blood in his sputum, chest pain, abdominal discomfort, diarrhea, or family members with similar symptoms. The patient was notably admitted to [facility] in April 2019 after diagnosis of diabetic ketoacidosis. The patient was given a nasal swab for COVID-19 PCR pending at the time of this dictation. PAST MEDICAL HISTORY: 1. Diabetes mellitus type 2, insulin requiring. 2. Schizophrenia. 3. Medication noncompliance. 4. Tobacco use. 5. Hypertension. PAST SURGICAL HISTORY: Reviewed and negative. CURRENT MEDICATIONS: Based on review of electronic medical record; 1. Lantus 15 units subcutaneously daily. 2. Humalog 5 units subcutaneously t.i.d. 3. Losartan 25 mg p.o. daily. 4. Simvastatin 10 mg p.o. at bedtime. ALLERGIES: PENICILLIN. FAMILY HISTORY: Diabetes mellitus in multiple family members. SOCIAL HISTORY: Resides in [place], [place], living with his sister. Smokes up to a pack of cigarettes daily. History of cocaine and marijuana use. Occasional alcohol use. Ambulates without a rolling walker or assistive device. No recent falls. REVIEW OF SYSTEMS: CONSTITUTIONAL: Negative for weight loss or gain, ability to conduct usual activities. SKIN: Negative for rash, itching. EYES: Negative for double vision, pain. ENT/MOUTH: Negative for nose bleeding, neck stiffness, pain, tenderness. CARDIOVASCULAR: Negative for palpitations, dyspnea on exertion, orthopnea. RESPIRATORY: Negative for shortness of breath, wheezing, cough, hemoptysis, fever or night sweats. GASTROINTESTINAL: Negative for poor appetite, abdominal pain, heartburn, nausea, vomiting, constipation, or diarrhea. GENITOURINARY: Negative for urgency, frequency, dysuria, nocturia. MUSCULOSKELETAL: Negative for pain, swelling. NEUROLOGIC/PSYCHIATRIC: Negative for anxiety, depression. ALLERGY/IMMUNOLOGIC: Negative for skin rash, bleeding tendency. Otherwise negative except as stated per HPI. PHYSICAL EXAMINATION: VITAL SIGNS: On admission, blood pressure 194/104, pulse 82, respiratory rate 18, temperature 98.3 degrees Fahrenheit, O2 saturation 100% on room air. GENERAL APPEARANCE: This is a 59-year-old male, alert and responsive, in no acute distress. HEENT: Pupils are equal, round, reactive to light and accommodation. Extraocular muscles are intact. No scleral icterus. No conjunctival injection. Nares are patent. OP is clear. Oral mucosa dry. Poor dentition. NECK: Supple. No cervical adenopathy. No thyromegaly. No carotid bruits. No JVD appreciated. Cervical spine with full active and passive range of motion. No meningeal signs noted. CHEST: Diminished breath sounds bilaterally, otherwise clear. CARDIOVASCULAR: S1, S2 without noted murmur, rub, or gallop. ABDOMEN: Flat, soft, nontender, and nondistended. Bowel sounds are positive in all 4 quadrants. There is no hepatosplenomegaly. No abdominal bruits. No rebound or guarding appreciated. EXTREMITIES: Warm and dry with fair turgor. Generalized muscle atrophy noted. Pulses palpable distally at the dorsalis pedis, posterior tibial, and popliteal arteries bilaterally. Capillary refill less than 2 seconds. NEUROLOGIC: Cranial nerves 2 through 12 are grossly intact. Alert and oriented to person and place. Moves all extremities on command. Not observed ambulatory during this exam. PERTINENT LABORATORY AND X-RAY FINDINGS: Sodium 127, potassium 4.9, chloride 91, CO2 of 24, BUN 23, creatinine 1.27, estimated GFR 71, glucose 634, calcium 8.9, total bilirubin 3.5, AST 38, ALT 56, alkaline phosphatase 111. Troponin I 0.022. Lipase 109. CBC showed a white blood cell count of 8.2, hemoglobin 14, hematocrit 38, platelet count 153 with normal differential. Venous blood gas dated 07/03/2019 showed a pH of 7.44, pCO2 36.8, PO2 138, bicarb 24.7. Urinalysis showed greater than 1000 glucose. Positive ketones. Beta-hydroxybutyrate level 1.04. Portable chest x-ray dated 07/03/2019 showed no acute cardiopulmonary process. Telemetry monitoring shows sinus rhythm with heart rates in the 80s. ASSESSMENT AND PLAN: 1. Diabetic ketoacidosis. The patient will be admitted to the intermediate care unit. We will continue DKA protocol with insulin infusion. No current focal infectious process identified. Check A1c level in the a.m. Continue IV fluids per protocol. Repeat beta hydroxybutyrate level in the a.m. 2. Acute metabolic encephalopathy. Mild encephalopathy given patient's presentation due to #1. Continue supportive management as outlined above. 3. Acute kidney injury secondary to #1. We will continue IV fluids as outlined in #1. Avoid nephrotoxic agents and limit contrast exposure. Repeat creatinine in the a.m. 4. Hyponatremia. Suspect secondary to hyperglycemia. Anticipate correction of hyponatremia with correction of hyperglycemia as outlined in #1. 5. Hypertension. Labile. We will confirm home antihypertensive regimen. Hydralazine IV p.r.n. systolic blood pressure greater than or equal to 180. 6. Prophylaxis. SCDs while in bed. Pepcid 20 mg p.o. b.i.d.. CODE STATUS: Full. Surrogate medical decision maker is patient's sister. Job ID: [id number]
[2019-07-03] MEDS: Trihexyphenidyl 2 MG TAB PO SCH (21:38)
[2019-07-03 23:40] LABS: Anion Gap 11 mmol/L (10-20); BUN (Urea Nitrogen) 14 mg/dL (8.4-25.7); Calc. Creatinine Clearance 70 mL/min (70-130); Calcium 8.1 mg/dL (7.8-10.44); Carbon Dioxide 24 mmol/L (22-29); Chloride 101 mmol/L (98-107); Estimated GFR-MDRD Greater than 90; Glucose 264 mg/dL (70-105); Sodium 132 mmol/L (136-145)
[2019-07-04] MEDS: D5 1/2 NS w/20 mEq KCL 1,000 ML IV PRN ×2 (04:07)
[2019-07-04 04:12] LABS: Anion Gap 11 mmol/L (10-20); BUN (Urea Nitrogen) 11 mg/dL (8.4-25.7); Calc. Creatinine Clearance 76 mL/min (70-130); Calcium 8.6 mg/dL (7.8-10.44); Carbon Dioxide 23 mmol/L (22-29); Chloride 101 mmol/L (98-107); Estimated GFR-MDRD Greater than 90; Glucose 61 mg/dL (70-105); Potassium 4.1 mmol/L (3.5-5.1); Sodium 131 mmol/L (136-145)
[2019-07-04] MEDS ORDERED: Dextrose 50% Abboject 50 ML SYRINGE IVP PRN (06:00)
[2019-07-04] MEDS ORDERED: Dextrose 5% in Water 1,000 ML IV PRN (06:00)
[2019-07-04] MEDS ORDERED: Insulin Glargine 12 UNITS in Pre-Filled Syringe 1 EACH SC SCH (06:15)
[2019-07-04] MEDS: Famotidine/PF 20 mg/2ml Vial SLOW IVP SCH ×2 (09:04→19:54)
[2019-07-04] MEDS: Trihexyphenidyl 2 MG TAB PO SCH ×4 (09:04→19:55)
--- NOTE | 2019-07-04 10:11 | CON ---
DATE OF CONSULTATION: HISTORY OF PRESENT ILLNESS: Brian Nation is a 59-year-old gentleman, who presented to the hospital with metabolic encephalopathy and hyperglycemia at [facility]. His blood sugar was elevated, he gave confusing history. There was some concern he had fever, cough, and congestion. However, his chest x-ray was negative. He was swabbed for coronavirus rule out. He is now in the ICU, but he is absolutely in no distress. Remains encephalopathic. But pretty much arousable. No shortness of breath. No coughing or wheezing. PAST MEDICAL HISTORY: Diabetes and hyperlipidemia. Otherwise included history of bipolar disorder. Schizophrenia and paranoid. PAST SURGICAL HISTORY: Surgeries apparently none recently. SOCIAL HISTORY: Apparently, history of alcohol abuse, drug abuse in the past, and tobacco abuse. MEDICATIONS: His home medicine presumably includes; 1. Desyrel 50. 2. Trihexyphenidyl one tablet four times a day. 3. Zocor 10. 4. Invega. 5. Insulin lispro 5 units three times a day. REVIEW OF SYSTEMS: Otherwise, difficult to obtain. PHYSICAL EXAMINATION: GENERAL: He is in no distress. VITAL SIGNS: He saturates without any oxygen close to 100%, . CHEST: No wheezing or crackles. CARDIAC: Normal S1 and S2. No gallops. ABDOMEN: No masses. LABORATORY DATA: X-ray is normal. Sodium is 131. His white count is only 8000, H and H 13 and 37, and platelet count 153. Blood gases were obtained. A pO2 of 137, . Glucose on admission was 634. IMPRESSION AND PLAN: Uncontrolled diabetes, bipolar disorder, presumed bronchitis with normal chest x-ray. From the Pulmonary standpoint, I feel once his blood sugar is addressed, he could be transferred out. At this stage, no reason to put any antibiotics. Continue diabetic care. Consultation note, 70 minutes, 50% direct patient care. Job ID: [id number]
[2019-07-04] MEDS: Insulin Regular 300 UNITS/3 ML VIAL SC PRN ×2 (11:35→16:06)
--- NOTE | 2019-07-04 13:13 | PDOC.HOSPP ---
- Subjective Encounter Date: 07/04/19 Encounter Time: 13:05 Subjective: f/u for DKA and COVID-19 rule out. Off insulin gtt since last night around 0200. 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 - Objective Vital Signs & Weight: Vital Signs (12 hours) Temp 07/04/19 11:00 97.0 F L 07/04/19 09:00 97.2 F L 07/04/19 06:00 97.2 F L 07/04/19 03:00 97.6 F Weight Weight 104 lb 4.458 oz Most Recent Monitor Data Heart Rate from ECG 81 NIBP 141/77 NIBP BP-Mean 98 Respiration from ECG 19 SpO2 98 I&O: 07/03/19 07/04/19 07/05/19 06:59 06:59 06:59 Intake Total 3287 800 Output Total 1420 0 Balance 1867 800 Result Diagrams: 07/03/19 15:39 07/04/19 03:29 Additional Labs: Accuchecks 07/04/19 07/04/19 07/04/19 11:05 06:16 05:34 POC Glucose 340 H 242 H 249 H 07/04/19 07/04/19 07/04/19 04:44 02:12 01:15 POC Glucose 139 H 217 H 185 H 07/04/19 07/03/19 07/03/19 00:21 23:05 21:56 POC Glucose 234 H 286 H 247 H 07/03/19 07/03/19 07/03/19 21:16 19:51 19:10 POC Glucose 215 H 232 H 243 H 07/03/19 07/03/19 07/03/19 18:02 17:01 15:41 POC Glucose 401 H 486 H Greater than 550 H* EKG Reviewed by me: Yes (Tele - SR) Hospitalist ROS - Medication Medications: Active Medications Generic Name Dose Route Start Last Admin Trade Name Freq PRN Reason Stop Dose Admin Famotidine 20 mg 07/03/19 21:00 07/04/19 09:04 Pepcid SLOW IVP 20 mg Q12HR MARQUITA Administration Insulin Human Regular 0 units 07/04/19 06:00 07/04/19 11:35 Humulin R SC 11 unit .AGGRESSIVE SLIDING PRN Administration AGGRESSIVE SLIDING SCALE Protocol Trihexyphenidyl HCl 5 mg 07/04/19 09:00 07/04/19 09:04 Artane PO 5 mg QID MARQUITA Administration - Exam General Appearance: NAD, awake alert Eye: PERRL, anicteric sclera ENT: normocephalic atraumatic, no oropharyngeal lesions Neck: supple, symmetric, no JVD, no thyromegaly Heart: RRR, no murmur, no gallops, no rubs, normal peripheral pulses Heart - other findings: S1, S2 Respiratory: CTAB, no wheezes, no rales, no ronchi, normal chest expansion Gastrointestinal: soft, non-tender, non-distended, normal bowel sounds, no palpable masses Extremities: no cyanosis, no clubbing Neurological: cranial nerve grossly intact, no new deficit Musculoskeletal: generalized weakness Musculoskeletal - other findings: generalized atrophy Psychiatric: oriented to person Hosp A/P (1) DKA (diabetic ketoacidosis) Code(s): E11.10 - TYPE 2 DIABETES MELLITUS WITH KETOACIDOSIS WITHOUT COMA Status: Acute Plan: Resolving, start home insulin regimen, ISS, ADA (2) Acute metabolic encephalopathy Code(s): G93.41 - METABOLIC ENCEPHALOPATHY Status: Acute Plan: Improved, appears at baseline functional status (3) BREE (acute kidney injury) Code(s): N17.9 - ACUTE KIDNEY FAILURE, UNSPECIFIED Status: Acute Plan: Improved, continue IVF's, avoid nephrotoxic meds and limit contrast (4) Hyponatremia Code(s): E87.1 - HYPO-OSMOLALITY AND HYPONATREMIA Status: Acute Plan: Improved, secondary to hyperglycemia (5) Schizophrenia Code(s): F20.9 - SCHIZOPHRENIA, UNSPECIFIED Status: Chronic Plan: Resume home antipsychotics - Plan adoption social worker, DVT proph w/SCDs Continue supportive mgmt Start Glargine Insulin 15u in am, 10u QHS Continue IVF's Awaiting COVID-19 PCR Respiratory isolation Resume ADA AM lab: BMP, A1C
[2019-07-04] MEDS: Insulin Glargine 10 UNITS in Pre-Filled Syringe 1 EACH SC SCH (19:54)
[2019-07-04] MEDS: traZODone HCl 50 MG TAB PO SCH (19:55)
[2019-07-05 04:17] LABS: Hemoglobin A1c Greater than 14.0 % (4.0-6.0)
[2019-07-05 04:27] LABS: Anion Gap 12 mmol/L (10-20); BUN (Urea Nitrogen) 19 mg/dL (8.4-25.7); Calc. Creatinine Clearance 60 mL/min (70-130); Calcium 8.8 mg/dL (7.8-10.44); Carbon Dioxide 23 mmol/L (22-29); Chloride 100 mmol/L (98-107); Estimated GFR-MDRD Greater than 90; Sodium 131 mmol/L (136-145)
[2019-07-05 04:32] LABS: Glucose 54 mg/dL (70-105)
[2019-07-05] MEDS: Insulin Glargine 15 UNITS in Pre-Filled Syringe 1 EACH SC SCH (07:42)
[2019-07-05] MEDS: Famotidine/PF 20 mg/2ml Vial SLOW IVP SCH (07:42)
[2019-07-05] MEDS: Trihexyphenidyl 2 MG TAB PO SCH ×4 (07:48→21:24)
--- NOTE | 2019-07-05 08:54 | PRG ---
DATE OF SERVICE: 07/05/2019 SUBJECTIVE: This morning, he is sitting on the side of the bed, eating breakfast. OBJECTIVE: VITAL SIGNS: Pulse 78, blood pressure 132/82, respiratory rate 18, sats room air. CHEST: No wheezing or crackles. CARDIAC: Normal S1, S2. No gallops. ABDOMEN: No masses. LABORATORY DATA: Blood sugar slightly decreased this morning to 54. ASSESSMENT AND PLAN: Diabetes, poor compliance, bipolar, encephalopathy, still awaiting results of his viral serology. He can probably be transferred out of the ICU. Hopefully, we get the results back negative. He can probably be transferred to home any time. Pulmonary will follow only while in the ICU. Job ID: [id number]
[2019-07-05] MEDS: Insulin Regular 300 UNITS/3 ML VIAL SC PRN ×2 (13:14→17:48)
--- NOTE | 2019-07-05 19:50 | DIS ---
DATE OF ADMISSION: 07/03/2019 DATE OF DISCHARGE: 07/05/2019 DISCHARGE DIAGNOSES: 1. Diabetic ketoacidosis due to noncompliance, improved. 2. Acute metabolic encephalopathy secondary to diabetic ketoacidosis, improved. 3. Acute kidney injury secondary to diabetic ketoacidosis, improved. 4. Hyponatremia secondary to hyperglycemia, improved. 5. Schizophrenia. CONSULTATIONS: Dr. Rodriguez with Pulmonology/Critical Care Service. PERTINENT LABORATORY AND X-RAY FINDINGS: Sodium ranged between 127 to 132, creatinine ranged between 0.71 to 1.27, and estimated GFR ranged between 71 to greater than 90. Hemoglobin A1c 14.0. AST 38, ALT of 56, alkaline phosphatase 111. Lipase 109. CBC showed a hemoglobin 13.7, hematocrit 38. Beta-hydroxybutyrate level ranged between 0.09 to 1.04. Urine culture dated 07/03/2019 showed 25,000 to 50,000 colonies of mixed skin annie. Portable chest x-ray dated 07/03/2019 showed no acute cardiopulmonary process. HOSPITAL COURSE: The patient was admitted to the Critical Care Unit after initially presenting with fever, cough, and confusion. The patient with longstanding history of diabetes mellitus type 2 with recurrent admissions for DKA due to noncompliance and dysfunctional social situation. The patient presented with evidence of diabetic ketoacidosis and placed on DKA protocol with aggressive fluid hydration. Hemoglobin A1c was 14 confirming noncompliance. The patient clinically improved in regard to hyperglycemia with insulin infusion and IV fluids. Rapidly, converting to subcutaneous long-acting insulin therapy after 24 hours. At the time of admission due to the patient's presentation, the patient was being ruled out for a COVID-19 by PCR, which was unavailable at the time of discharge. The patient was placed on respiratory isolation as precaution, however, exhibited no evidence of fever, increased cough, congestion, or dyspnea or evidence of any hypoxia or oxygen requirement during the hospital stay. I have examined the patient at the time of discharge and discussed followup instructions. The patient was stable and ready for discharge home on 07/05/2019. DISCHARGE MEDICATIONS: 1. Glargine insulin 10 units subcutaneously b.i.d. 2. Trihexyphenidyl 5 mg p.o. q.i.d. 3. Zocor 10 mg p.o. at bedtime. 4. Desyrel 50 mg p.o. at bedtime. 5. Paliperidone 117 mg subcutaneously every 4 weeks. 6. Humalog 5 units subcutaneously t.i.d. with meals. FOLLOWUP: The patient may follow up with Dr. Regan Emerson at [place], [place]. CONDITION ON DISCHARGE: Fair. ACTIVITY: Ad-ciro. DIET: ADA. SPECIAL INSTRUCTIONS AND PENDING LABS: COVID-19 PCR pending at the time of this dictation. Recommend self quarantine with face mask while at home. The patient to receive results from [place], [place] at home. CODE STATUS: Full. DISPOSITION: Home on 07/05/2019. TIME SPENT: Total time preparing and coordinating discharge, 32 minutes. Job ID: [id number]
[2019-07-05] MEDS: traZODone HCl 50 MG TAB PO SCH (21:24)
[2019-07-05] MEDS: Famotidine 20 MG TAB PO SCH (21:24)
[2019-07-05] MEDS: Insulin Glargine 10 UNITS in Pre-Filled Syringe 1 EACH SC SCH (21:25)
--- NOTE | 2019-07-05 23:49 | PQF ---
CHUCKIE DE OLIVEIRARIZWAN DO [id number] CLINICAL DOCUMENTATION IMPROVEMENT CLARIFICATION FORM: ICD-10 Updated PLEASE DO AN ADDENDUM TO THE PROGRESS NOTE WITH ANY DOCUMENTATION UPDATES OR ADDITIONS AND CARRY THROUGH TO DC SUMMARY. THANK YOU. Date: 07/05/2019 ATTN: DR. Chaz TAN Please exercise your independent, professional judgment in responding to the clarification form. Clinical indicators are provided on the bottom of this form for your review. Please check appropriate box(s): [ ] Protein Calorie Malnutrition: [ ] Mild [ ] Moderate [ ] Severe [ ] Other Malnutrition (please specify) __ [ ] Underweight without malnutrition [ x ] Cachexia [ ] Other diagnosis [ ] Unable to determine In addition, please specify: Present on Admission (POA): [ x ] Yes [ ] No [ ] Unable to determine CLINICAL INDICATORS - SIGNS / SYMPTOMS / LABS / RESULTS AND LOCATION IN MR 07/02 ED REPORT : PATIENT APPEARS CACHETIC, DISHEVELED APPEARANCE, MUSCLE TONE DECONDITIONING AND POOR MUSCLE MASS. 07/03 PN (BRITNEY) EXAM: MUSCULOSKELETAL- GENERALIZED ATROPHY 07/04 PN (KIRAN) A/P: DIABETES, POOR COMPLIANCE RISK: BMI 15.4, DM, DKA , TOBACCO USE (H&P/BRITNEY) 07/02 TREATMENTS: INSULIN INFUSION HUMULIN R IVPB (ED/07/02) IV FLUIDS NS (ED/07/02) Moderate Malnutrition (in acute illness) Energy Intake: <75% of estimated energy requirement for > 7 days Weight Loss: 1-2%/1 week; 5%/ 1 month; 7.5%/3 months Other: mild body fat loss; mild muscle mass loss; mild fluid accumulation; Severe Malnutrition (in acute illness) Energy Intake: < 50% of estimated energy requirement for > 5 days Weight Loss: >1-2%/1 week; >5%/1 month; >7.5%/3 months Other: moderate body fat loss; moderate muscle mass loss; moderate- severe fluid accumulation; measurably reduced toy stuffer strength Moderate Malnutrition (in chronic illness) Energy Intake: <75% of estimated energy requirement for >1 month Weight Loss: 5%/1 month; 7.5%/3 months; 10%/6 months; 20%/1 year Other: mild body fat loss; mild muscle mass loss; mild fluid accumulation Severe Malnutrition (in chronic illness) Energy Intake: <75% of estimated energy requirement for >1 month Weight Loss: >5%/1 month; >7.5%/3 months; >10%/6 months; >20%/1 year Other: severe body fat loss; severe muscle mass loss; severe fluid accumulation ; measurably reduced toy stuffer strength THANK YOU! MARCOS (This form is maintained as a part of the permanent medical record) 2015 [employer]. All Rights Reserved JOSE RAFAEL [email or web address]
[2019-07-06 05:16] LABS: Anion Gap 12 mmol/L (10-20); BUN (Urea Nitrogen) 25 mg/dL (8.4-25.7); Calc. Creatinine Clearance 53 mL/min (70-130); Calcium 9.2 mg/dL (7.8-10.44); Carbon Dioxide 29 mmol/L (22-29); Chloride 96 mmol/L (98-107); Estimated GFR-MDRD Greater than 90; Glucose 157 mg/dL (70-105); Potassium 4.9 mmol/L (3.5-5.1); Sodium 132 mmol/L (136-145)
[2019-07-06] MEDS: Insulin Regular 300 UNITS/3 ML VIAL SC PRN (06:48)
[2019-07-06] MEDS: Insulin Glargine 15 UNITS in Pre-Filled Syringe 1 EACH SC SCH (08:08)
[2019-07-06] MEDS: Trihexyphenidyl 2 MG TAB PO SCH (08:09)
[2019-07-06] MEDS: Famotidine 20 MG TAB PO SCH (08:09)
[2019-07-06 08:32] VITALS: BP 123/75; TEMP 98.6
== END 2019-07-06 09:25 | disposition home or self-care (01) | DRG 637 ==
LOC: ERS 15:18 → CCU 17:28 → 2SW 07-05 19:21
PROVIDERS: ADMIT Family Medicine; ATTEND Family Medicine
PROC: 8E0ZXY6 Isolation (ICD-10-PCS; principal; 2019-07-03)
DX: E11.10 Type 2 diabetes mellitus with ketoacidosis without coma (principal); G93.41 Metabolic encephalopathy; N17.9 Acute kidney failure, unspecified; E87.1 Hypo-osmolality and hyponatremia; Z20.828 Contact with and (suspected) exposure to other viral communicable diseases; F20.9 Schizophrenia, unspecified; I10 Essential (primary) hypertension; E78.5 Hyperlipidemia, unspecified; F31.9 Bipolar disorder, unspecified; F17.210 Nicotine dependence, cigarettes, uncomplicated; Z91.19 Patient's noncompliance with other medical treatment and regimen; Z91.14 Patient's other noncompliance with medication regimen; Z28.82 Immunization not carried out because of caregiver refusal; Z88.0 Allergy status to penicillin; Z79.899 Other long term (current) drug therapy; Z79.4 Long term (current) use of insulin
CPT/HCPCS: 36415; 36416; 71045; 80048; 80053; 81003; 82010; 82330; 82803; 83036; 83690; 83735; 84484; 85025; 87086; 96360; 96361; 96365; 96366; J1815; J3480; J3490; S0028

== ENCOUNTER 2019-07-08 11:10 | Observation (INO) | payer OTHER ==
[2019-07-08] MEDS ORDERED: Insulin Regular 300 UNITS/3 ML VIAL ONE (12:01)
[2019-07-08 12:08] LABS: #Basophils 0.1 thou/uL (0.0-0.2); #Eosinphils 0.1 thou/uL (0.0-0.7); #Lymphocytes 1.7 thou/uL (1.20-3.40); #Monocytes 0.6 thou/uL (0.11-0.59); #Neutrophils 6.5 thou/uL (1.40-6.50); %Basophils 0.6 % (0.0-1.0); %Eosinophils 1.1 % (0.0-10.0); %Lymphocytes 18.7 % (21.0-51.0); %Monocytes 6.6 % (0.0-10.0); Hemoglobin 13.3 g/dL (14.0-18.0); Mean Corpuscular HGB CONC 35.5 g/dL (32.0-36.0); Mean Corpuscular Hemoglobin 31.4 pg (27.0-31.0); Mean Corpuscular Volume 88.3 fL (78.0-98.0); Mean Platelet Volume 9.5 fL (7.4-10.4); Platelet Count 161 thou/uL (130-400); RBC Distribution Width 12.5 % (11.5-14.5); Red Blood Cell (RBC) Count 4.25 mill/uL (4.70-6.10)
--- NOTE | 2019-07-08 12:10 | RAD ---
EXAM: CHEST ONE VIEW HISTORY: Patient passed out and brought to Hospital. Hyperglycemia. Swelling right leg. COVID 19 positive. COMPARISON: 07/03/2019 FINDINGS: The cardiac silhouette and pulmonary vasculature is within normal limits. Linear densities are seen a t the left lung base and in the region of the lingula likely attributable to atelectasis. No consolidation or pleural fluid is identified. There are remote fractures involving the left posterior sixth and seventh ribs. Vascular calcifications are seen in the thoracic aorta IMPRESSION: 1. Atelectasis left lung base without evidence of an acute cardiopulmonary process. No pulmonary opac ities are visualized. However, chest radiographs exhibit low sensitivity for subtle groundglass opacities that can be seen in viral infections. 2. Remote left-sided rib fractures.
[2019-07-08 12:33] LABS: ALT (SGPT) 44 U/L (8-55); AST (SGOT) 34 U/L (5-34); Albumin 4.2 g/dL (3.5-5.0); Alkaline Phosphatase 105 U/L (40-110); Anion Gap 14 mmol/L (10-20); BUN (Urea Nitrogen) 22 mg/dL (8.4-25.7); Bilirubin, Total 0.6 mg/dL (0.2-1.2); Calc. Creatinine Clearance 0 mL/min (70-130); Calcium 9.6 mg/dL (7.8-10.44); Carbon Dioxide 27 mmol/L (22-29); Chloride 92 mmol/L (98-107); Estimated GFR-MDRD 73; Globulin 3.3 g/dL (2.4-3.5); Potassium 4.7 mmol/L (3.5-5.1); Protein, Total 7.5 g/dL (6.0-8.3); Sodium 128 mmol/L (136-145)
[2019-07-08 12:39] LABS: Glucose 648 mg/dL (70-105)
[2019-07-08 13:01] LABS: Bilirubin Negative (Negative); Blood, Urine Negative (Negative); Clarity Clear (Clear); Glucose, Urine (Dipstick) Greater than 1000 mg/dL (Negative); Leukocyte Negative Leu/uL (Negative); Nitrite Negative (Negative); Protein, Urine (Dipstick) Negative (Neg-Trace); Urobilinogen Normal mg/dL (Less than 2)
[2019-07-08 13:10] LABS: Amphetamine Not Detected (NotDetected); Barbiturates Screen Not Detected (NotDetected); Benzodiazepine Screen Not Detected (NotDetected); Cocaine Metabolite Screen Not Detected (NotDetected); Medtox Control Line Valid? VALID (VALID); Medtox Reader # READER 4; Methadone Not Detected (NotDetected); Methamphetamine Not Detected (NotDetected); Opiate Screen Not Detected (NotDetected); Oxycodone Screen Not Detected (NotDetected); Phencyclidine (PCP) Not Detected (NotDetected); THC/Cannabinoid Screen Not Detected (NotDetected); Tricyclic Screen Not Detected (NotDetected)
[2019-07-08] MEDS ORDERED: Insulin Glargine 20 UNITS in Pre-Filled Syringe 1 EACH SC SCH (14:15)
[2019-07-08] MEDS ORDERED: Acetaminophen 325 MG TAB PO PRN (17:09)
[2019-07-08] MEDS ORDERED: HumaLOG 300 UNITS/3 ML VIAL SC PRN ×2 (17:13)
[2019-07-08] MEDS ORDERED: Dextrose 5% in Water 1,000 ML IV PRN (17:13)
[2019-07-08] MEDS ORDERED: Dextrose 50% Abboject 50 ML SYRINGE SLOW IVP PRN (17:13)
--- NOTE | 2019-07-08 17:22 | PDOC.HHP ---
Hospitalist HPI - History of Present Illness Hyperglycemia History of Present Illness: PCP: Tereso Melendez, Dr. Emerson The patient is a 59/M with PMH significant for DMI (uncontrolled), schizophrenia , HTN, HLD, and smoking that presents to the ER for the above complaint. The patient reports that he "fell out" today at [facility] office. He remembers falling, denies hitting head or LOC. Denies any focal weakness or injuries. Denies any chest pain, heart palpitations or sob. Denies any abdominal pain, vomiting or diarrhea. Denies any recent fever or chills. Reports some urinary frequency and urgency. States that he has not been compliant with his insulin regimen, he basically has not been taking it at all. Reports that he didn't think his sugar was high, because he usually feels bad when it is elevated. Reports he refused to go with EMS to the hospital, but he agreed to go if his sister drove him. I spoke with his sister, who confirmed his story, but said that he tripped and fell while walking to the [facility] office. She thinks somebody witnessed him fall outside the building and helped him up and took him inside to get medical attention. EMS was called. He was irritated with EMS, refusing to go with them, so she drove him to the ER. She states that he was recently discharged from our hospital for DKA and has been non compliant with his medications, specifically his insulin. He is also a chain smoker, smoking a cigarette "every 5 minutes". She denies any recent fever or chills. ED Course: VS 97.9F, 145/94, 95, 16, 98%RA Glucose 648 Bhydroxybutryate 0.23 GAP closed Na 128, corrected 137 CXR + ground glass opacities consistent with viral infection COVID test negative Given 2L NS 25u regular insulin Allergies: Penicillin Home Meds: Unable to confirm with patient Hospitalist ROS - Review of Systems Constitutional: denies: fever, chills, sweats, weakness, malaise, other Eyes: denies: pain, vision change, conjunctivae inflammation, eyelid inflammation, redness, other ENT: denies: ear pain, ear discharge, nose pain, nose discharge, nose congestion , mouth pain, mouth swelling, throat pain, throat swelling, other Respiratory: denies: cough, dry, shortness of breath, hemoptysis, SOB with excertion, pleuritic pain, sputum, wheezing, other Cardiovascular: denies: chest pain, palpitations, orthopnea, paroxysmal noc. dyspnea, edema, light headedness, other Gastrointestinal: denies: nausea, vomiting, abdominal pain, diarrhea, constipation, melena, hematochezia, other Genitourinary: reports: frequency. denies: dysuria, incontinence, hematuria, retention Musculoskeletal: denies: neck pain, shoulder pain, arm pain, back pain, hand pain, leg pain, foot pain, other Skin: denies: rash, lesions, bonnie, bruising, other Neurological: denies: weakness, numbness, incoordination, change in speech, confusion, seizures, other Hospitalist History - Past Medical History Source: patient, family Cardiac: reports: HTN (no medication prescribed), Hyperlipidemia Psych: reports: Other (schizoaffective/paranoia) Endocrine: reports: Diabetes (Type I) - Past Surgical History Past Surgical History: reports: no pertinent history - Family History Family History: reports: no pertinent history Other Family History: patient reports non contributory for mental illness or diabetes - Social History Smoking Status: Current every day smoker Tobacco Type: cigarettes Alcohol: reports: Occassional Drugs: reports: Other (HX cocaine and marijuana) Living Situation: With Family Occupation: Lives in [place] with sister Activity level: independent ambulation - Exam General Appearance: NAD, awake alert Eye: PERRL, anicteric sclera ENT: normocephalic atraumatic, moist mucosa Neck: supple, no JVD Heart: RRR, no murmur, no gallops, no rubs, normal peripheral pulses Respiratory: CTAB, no wheezes, no rales, no ronchi, no tachypnea Gastrointestinal: soft, non-tender, normal bowel sounds, no guarding, no rigidity Extremities: no cyanosis, no edema Neurological: cranial nerve grossly intact, no focal deficits Psychiatric: A&O x 3 Psychiatric - other findings: pleasant, restrained BUE soft restraints Hospitalist Results - Labs Result Diagrams: 07/08/19 11:57 07/08/19 17:24 Lab results: WBC 9.0 thou/uL (4.8-10.8) 07/08/19 11:57 Hgb 13.3 g/dL (14.0-18.0) L 07/08/19 11:57 Hct 37.6 % (42.0-52.0) L 07/08/19 11:57 MCV 88.3 fL (78.0-98.0) 07/08/19 11:57 Plt Count 161 thou/uL (130-400) 07/08/19 11:57 Neutrophils % 73.0 % (42.0-75.0) 07/08/19 11:57 Sodium 128 mmol/L (136-145) L 07/08/19 11:57 Potassium 4.7 mmol/L (3.5-5.1) 07/08/19 11:57 Chloride 92 mmol/L (98-107) L 07/08/19 11:57 Carbon Dioxide 27 mmol/L (22-29) 07/08/19 11:57 BUN 22 mg/dL (8.4-25.7) 07/08/19 11:57 Creatinine 1.23 mg/dL (0.7-1.3) 07/08/19 11:57 Glucose 648 mg/dL (70-105) H* 07/08/19 11:57 Calcium 9.6 mg/dL (7.8-10.44) 07/08/19 11:57 Total Bilirubin 0.6 mg/dL (0.2-1.2) 07/08/19 11:57 AST 34 U/L (5-34) 07/08/19 11:57 ALT 44 U/L (8-55) 07/08/19 11:57 Alkaline Phosphatase 105 U/L (40-110) 07/08/19 11:57 Serum Total Protein 7.5 g/dL (6.0-8.3) 07/08/19 11:57 Albumin 4.2 g/dL (3.5-5.0) 07/08/19 11:57 Urine Ketones Negative mg/dL (Negative) 07/08/19 11:57 Urine Blood Negative (Negative) 07/08/19 11:57 Urine Nitrite Negative (Negative) 07/08/19 11:57 Ur Leukocyte Esterase Negative Lynne/uL (Negative) 07/08/19 11:57 - Radiology Interpretation Chest x-ray Status: report reviewed by me Hospitalist H&P A/P - Problem (1) Hyperglycemia Code(s): R73.9 - HYPERGLYCEMIA, UNSPECIFIED Status: Acute Assessment and Plan: Admit to medical floor, observation status Expected stay < 2 midnights Glucose 648, Na corrected 137, K 4.7, Beta hydroxy 0.23, UA no ketones Upon exam patient pleasant, oriented x 3, states feels much better Continue IVF hydration Start home lantus regimen, combine single dosing at night- lantus 20u q hs Accuchecks every 4 hours CL diet I&Os Repeat BMP in am (2) DM I (diabetes mellitus, type I), uncontrolled Code(s): E10.65 - TYPE 1 DIABETES MELLITUS WITH HYPERGLYCEMIA Status: Chronic Assessment and Plan: Sister reports patient is non compliant, [facility] has been managing medication regimen Will change lantus to once daily dosing Will educate diabetes (3) Schizophrenia Code(s): F20.9 - SCHIZOPHRENIA, UNSPECIFIED Status: Chronic Assessment and Plan: Patient restrained at examination Pleasant, answering questions Nursing to reconcile home meds. 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 Serrano
[2019-07-08] MEDS ORDERED: Nicotine 14 MG PATCH TD SCH (18:00)
[2019-07-08] MEDS ORDERED: PALIPERIDONE PALMITATE IM SCH (18:00)
[2019-07-08 18:14] LABS: Anion Gap 13 mmol/L (10-20); BUN (Urea Nitrogen) 18 mg/dL (8.4-25.7); Calc. Creatinine Clearance 0 mL/min (70-130); Carbon Dioxide 27 mmol/L (22-29); Chloride 96 mmol/L (98-107); Estimated GFR-MDRD Greater than 90; Glucose 429 mg/dL (70-105); Potassium 4.7 mmol/L (3.5-5.1); Sodium 131 mmol/L (136-145)
[2019-07-08] MEDS: Sodium Chloride 0.9% 1,000 ML IV SCH (18:46)
[2019-07-08 19:38] LABS: Anion Gap 9 mmol/L (10-20); BUN (Urea Nitrogen) 17 mg/dL (8.4-25.7); Calc. Creatinine Clearance 0 mL/min (70-130); Calcium 8.5 mg/dL (7.8-10.44); Carbon Dioxide 28 mmol/L (22-29); Chloride 98 mmol/L (98-107); Estimated GFR-MDRD Greater than 90; Glucose 408 mg/dL (70-105); Potassium 4.2 mmol/L (3.5-5.1); Sodium 131 mmol/L (136-145)
[2019-07-08] MEDS ORDERED: Simvastatin 5 MG TAB PO SCH (21:00)
[2019-07-08] MEDS ORDERED: traZODone HCl 50 MG TAB PO SCH (21:00)
[2019-07-08] MEDS: Famotidine 20 MG TAB PO SCH (21:32)
[2019-07-08] MEDS: Trihexyphenidyl 2 MG TAB PO SCH (21:32)
[2019-07-08 21:52] VITALS: BMI 16.9
[2019-07-09 00:23] LABS: Anion Gap 12 mmol/L (10-20); BUN (Urea Nitrogen) 13 mg/dL (8.4-25.7); Calc. Creatinine Clearance 97 mL/min (70-130); Calcium 8.3 mg/dL (7.8-10.44); Carbon Dioxide 23 mmol/L (22-29); Chloride 102 mmol/L (98-107); Estimated GFR-MDRD Greater than 90; Potassium 3.9 mmol/L (3.5-5.1); Sodium 133 mmol/L (136-145)
[2019-07-09 00:27] LABS: Glucose 46 mg/dL (70-105)
[2019-07-09] MEDS ORDERED: HumaLOG 300 UNITS/3 ML VIAL SC PRN ×2 (00:44)
[2019-07-09 06:30] LABS: #Eosinphils 0.1 thou/uL (0.0-0.7); #Lymphocytes 2.1 thou/uL (1.20-3.40); #Monocytes 0.7 thou/uL (0.11-0.59); #Neutrophils 5.2 thou/uL (1.40-6.50); %Basophils 0.4 % (0.0-1.0); %Eosinophils 1.3 % (0.0-10.0); %Lymphocytes 25.7 % (21.0-51.0); %Monocytes 9.1 % (0.0-10.0); %Neutrophils 63.5 % (42.0-75.0); Mean Corpuscular HGB CONC 35.4 g/dL (32.0-36.0); Mean Corpuscular Hemoglobin 31.7 pg (27.0-31.0); Mean Corpuscular Volume 89.5 fL (78.0-98.0); Mean Platelet Volume 9.2 fL (7.4-10.4); Platelet Count 169 thou/uL (130-400); RBC Distribution Width 12.8 % (11.5-14.5); Red Blood Cell (RBC) Count 3.78 mill/uL (4.70-6.10); White Blood Cell (WBC) Count 8.2 thou/uL (4.8-10.8)
[2019-07-09 06:52] LABS: Anion Gap 11 mmol/L (10-20); BUN (Urea Nitrogen) 11 mg/dL (8.4-25.7); Calc. Creatinine Clearance 93 mL/min (70-130); Carbon Dioxide 25 mmol/L (22-29); Chloride 100 mmol/L (98-107); Estimated GFR-MDRD Greater than 90; Glucose 103 mg/dL (70-105); Potassium 3.9 mmol/L (3.5-5.1); Sodium 132 mmol/L (136-145)
[2019-07-09] MEDS: Sodium Chloride 0.9% 1,000 ML IV SCH (07:07)
[2019-07-09] MEDS: Trihexyphenidyl 2 MG TAB PO SCH ×2 (07:48→12:48)
[2019-07-09] MEDS: Famotidine 20 MG TAB PO SCH (07:48)
[2019-07-09 10:54] VITALS: BP 147/88; TEMP 99.1
--- NOTE | 2019-07-10 03:14 | DIS ---
DATE OF ADMISSION: 07/08/2019 DATE OF DISCHARGE: 07/09/2019 DISCHARGE DIAGNOSES: 1. Hyperglycemia. 2. Diabetes mellitus, type 1. 3. Schizophrenia. 4. Tobacco abuse. 5. Hypertension. 6. Hyperlipidemia. DISCHARGE MEDICATIONS: 1. Insulin Lantus 20 units subcu in the morning and insulin lispro 5 units subcu t.i.d. with meals. 2. Trihexyphenidyl 5 mg orally 4 times a day. 3. Trazodone 50 mg at night. 4. Simvastatin 5 mg at bedtime, two tablets. 5. Paliperidone palmitate 117 mg IM every four weeks. HISTORY OF PRESENT ILLNESS AND HOSPITAL COURSE: The patient is a 59-year-old with past medical history of type 1 insulin-dependent diabetes mellitus and schizophrenia, who was sent to the ER due to recurrent falling and hyperglycemia. He was at the [facility] office today when he fell. He denies any loss of consciousness or focal weakness. His sugar level was found to be elevated above 600, which improved to 400 after a dose of regular insulin in the ER. The patient denied taking his insulin at home. He has been noncompliant before. He was placed in observation and his home insulin was restarted, leading to control of his hyperglycemia. On the second day of hospital stay, the patient was asymptomatic and his sugar levels were controlled. He is stable to discharge home at this time. Job ID: [id number]
== END 2019-07-09 13:40 | disposition home or self-care (01) ==
LOC: ERS 11:10 → T4-B 16:21
PROVIDERS: ADMIT Internal Medicine; ATTEND Internal Medicine
DX: E10.65 Type 1 diabetes mellitus with hyperglycemia (principal); F20.9 Schizophrenia, unspecified; I10 Essential (primary) hypertension; E78.5 Hyperlipidemia, unspecified; F17.210 Nicotine dependence, cigarettes, uncomplicated; F14.11 Cocaine abuse, in remission; F12.11 Cannabis abuse, in remission; Z79.899 Other long term (current) drug therapy; Z88.0 Allergy status to penicillin; W01.0XXA Fall on same level from slipping, tripping and stumbling without subsequent striking against object, initial encounter
CPT/HCPCS: 36415; 36416; 71045; 80048; 80053; 80306; 81003; 82010; 85025; 96361; 96374; 96375; G0378; J1815

== ENCOUNTER 2020-01-18 14:27 | Inpatient (IN) | payer OTHER ==
[2020-01-18] MEDS ORDERED: Ondansetron PF 4 MG/2 ML Vial ONE (15:05)
[2020-01-18 15:37] LABS: Base Excess-Venous 0.2 mmol/L (-2.0 to 3.0); CO2 Tension (PvCO2) 51.5 mmHg (40.0-50.0); Calcium, Ionized 1.14 mmol/L (1.15-1.33); Chloride 94 mmol/L (98-107); Hemoglobin - Calc 13.5 g/dL (14.0-18.0); Potassium 4.9 mmol/L (3.5-5.1); Sodium 128 mmol/L (138-145); T. Carbon Dioxide 28.5 mmol/L (22.0-28.0); vO2 Saturation-calc 76.1 % (60.0-85.0)
[2020-01-18 15:39] LABS: #Basophils 0.1 thou/uL (0.0-0.2); #Eosinphils 0.1 thou/uL (0.0-0.7); #Lymphocytes 1.1 thou/uL (1.20-3.40); #Monocytes 0.4 thou/uL (0.11-0.59); #Neutrophils 5.5 thou/uL (1.40-6.50); %Basophils 1.4 % (0.0-1.0); %Eosinophils 0.8 % (0.0-10.0); %Lymphocytes 15.5 % (21.0-51.0); %Monocytes 5.8 % (0.0-10.0); %Neutrophils 76.5 % (42.0-75.0); Hemoglobin 13.3 g/dL (14.0-18.0); Mean Corpuscular Hemoglobin 31.5 pg (27.0-31.0); Mean Corpuscular Volume 92.6 fL (78.0-98.0); Mean Platelet Volume 9.4 fL (7.4-10.4); Platelet Count 181 thou/uL (130-400); RBC Distribution Width 12.6 % (11.5-14.5); Red Blood Cell (RBC) Count 4.21 mill/uL (4.70-6.10); White Blood Cell (WBC) Count 7.2 thou/uL (4.8-10.8)
--- NOTE | 2020-01-18 15:57 | RAD ---
EXAM: Single view of the chest HISTORY: Shortness of breath and vomiting COMPARISON: 07/08/2019 FINDINGS: Single view of the chest shows a normal sized cardiomediastinal silhouette. Atheroscleroti c calcifications are seen in the aorta. There is no evidence of consolidation, mass, or pleural effusion. There is remote healed left rib fracture. Degenerative changes are seen in the spine. IMPRESSION: No evidence of acute cardiopulmonary disease
[2020-01-18 16:04] LABS: Acetaminophen Less than 6.0 mcg/mL (10.0-30.0); Alcohol Less than 10 mg/dL (Less than 10); Anion Gap 18 mmol/L (10-20); BUN (Urea Nitrogen) 24 mg/dL (8.4-25.7); Calc. Creatinine Clearance 0 mL/min (70-130); Carbon Dioxide 25 mmol/L (22-29); Chloride 91 mmol/L (98-107); Estimated GFR-MDRD 51; Magnesium 2.4 mg/dL (1.6-2.6); Salicylate Less than 8.0 mg/dL (15.0-30.0); Sodium 129 mmol/L (136-145)
[2020-01-18 16:05] LABS: ALT (SGPT) 22 U/L (8-55); AST (SGOT) 25 U/L (5-34); Albumin 3.9 g/dL (3.5-5.0); Alkaline Phosphatase 92 U/L (40-110); Bilirubin, Total 0.4 mg/dL (0.2-1.2); Calcium 9.4 mg/dL (7.8-10.44); Globulin 3.2 g/dL (2.4-3.5); Protein, Total 7.1 g/dL (6.0-8.3)
[2020-01-18 16:17] LABS: Glucose 1129 mg/dL (70-105)
--- NOTE | 2020-01-18 16:30 | CT ---
EXAM: CT brain without contrast HISTORY: Altered mental status with diabetes COMPARISON: 04/14/2019 TECHNIQUE: Multiple contiguous axial images were obtained and a CT of the brain without contrast. FINDINGS: There are scattered hypodensities in the subcortical and periventricular white matter consi stent with small vessel ischemic disease. There is no evidence of hydrocephalus, intracranial hemorrhage, or extra-axial fluid collection. The calvarium and overlying soft tissues are unremarkable. There is chronic opacification of the righ t maxillary sinus. The other visualized paranasal sinuses and mastoid air cells are well aerated. IMPRESSION: No evidence of acute intracranial abnormality
[2020-01-18 17:03] LABS: Bilirubin Negative (Negative); Blood, Urine Negative (Negative); Clarity Clear (Clear); Glucose, Urine (Dipstick) Greater than 1000 mg/dL (Negative); Ketone, Urine Negative (Negative); Leukocyte Negative Leu/uL (Negative); Nitrite Negative (Negative); Protein, Urine (Dipstick) Negative (Neg-Trace); Specific Gravity, Urine 1.028 (1.002-1.036); Urobilinogen Normal mg/dL (Less than 2)
[2020-01-18 17:04] LABS: Medtox Reader # READER 1
[2020-01-18 17:09] LABS: Amphetamine Not Detected (NotDetected); Barbiturates Screen Not Detected (NotDetected); Benzodiazepine Screen Not Detected (NotDetected); Cocaine Metabolite Screen Not Detected (NotDetected); Medtox Control Line Valid? VALID (VALID); Methadone Not Detected (NotDetected); Methamphetamine Not Detected (NotDetected); Opiate Screen Not Detected (NotDetected); Oxycodone Screen Not Detected (NotDetected); Phencyclidine (PCP) Not Detected (NotDetected); THC/Cannabinoid Screen Not Detected (NotDetected); Tricyclic Screen Not Detected (NotDetected)
[2020-01-18] MEDS ORDERED: Insulin Regular 300 UNITS/3 ML VIAL ONE (17:11)
[2020-01-18] MEDS ORDERED: INSULIN REGULAR IN 0.9 % NACL 100 UNIT/100 ML BAG ONE (17:11)
--- NOTE | 2020-01-18 18:03 | PDOC.EVN ---
Event Note - Event Note Event Note: Patient was seen and examined. Case was reviewed with Sally Fox. Patient has significant hyperglycemia with pseudohyponatremia. He does admit to increased thirst and altered vision. He does not have DKA. His beta hydroxybutyrate is normal. He will be admitted on insulin drip with aggressive hydration. Every Accu-Cheks for now. No evidence of underlying infectious etiology. Patient reports that he is compliant with his medication that his sister helps him stay on top of that. On exam he is generally very thin but in no distress. He appears to be a bit cognitively delayed. Very pleasant.
--- NOTE | 2020-01-18 18:05 | PDOC.HHP ---
Hospitalist HPI - History of Present Illness Altered mental status History of Present Illness: Mr. Nation is a 59-year-old male with past medical history of type 1 diabetes mellitus, hypertension, hyperlipidemia, schizoaffective disorder, remote cocaine abuse, tobacco use who presents to the emergency room for altered mental status. Patient brought in by his sister who reports he has been confused and nauseous all morning. Patient reports he is on psychiatric medications but is unsure of their names. Reports he takes 1 for side effects, for when he "gets stiff". When asked about patient's insulin reports he has not used any in the past few days, but has been eating and working outside. Emergency room initial vital signs 134/87, 101, 18, 98.3, 98% on room air. EKG showed sinus tachycardia, troponin [address] brain negative for acute findings. BUN/CR 24/1.67. Sodium 129, potassium 5.0. Glucose 1129. TSH 1.48. Serum Osmo 347. Chest x-ray with no acute findings. Patient started on IV insulin drip at 0.1 unit/kg/hr. Patient admitted to hospitalist service for further evaluation and management. Hospitalist ROS - Review of Systems Constitutional: reports: other (Endorses thirst). denies: fever, chills, sweats, weakness, malaise Eyes: denies: pain, vision change, conjunctivae inflammation, eyelid inflammation, redness, other Respiratory: denies: cough, dry, shortness of breath, hemoptysis, SOB with excertion, pleuritic pain, sputum, wheezing, other Cardiovascular: denies: chest pain, palpitations, orthopnea, paroxysmal noc. dyspnea, edema, light headedness, other Gastrointestinal: reports: nausea, vomiting. denies: abdominal pain, diarrhea, constipation, melena, hematochezia, other Genitourinary: denies: dysuria, frequency, incontinence, hematuria, retention, other Musculoskeletal: denies: neck pain, shoulder pain, arm pain, back pain, hand pain, leg pain, foot pain, other Skin: denies: rash, lesions, bonnie, bruising, other Neurological: denies: weakness, numbness, incoordination, change in speech, confusion, seizures, other - Medication Medications: Home medications include Trazodone Simvastatin Invega Sustenna Lantus Trilexyphenidyl Patient reports allergy to penicillins Hospitalist History - Past Medical History Psych: reports: Other (schizoaffective/paranoia) Endocrine: reports: Diabetes (Type I) Other Medical History: Has some history of Type 1 diabetes mellitus Hyperlipidemia Hypertension Schizoaffective disorder, followed by [facility] - Past Surgical History Past Surgical History: reports: no pertinent history Other Surgical History: Patient denies past surgical history - Family History Other Family History: No pertinent family history - Social History Smoking Status: Current some day smoker Tobacco Type: cigarettes Alcohol: reports: Occassional Drugs: reports: Other (HX cocaine and marijuana, none currently) Living Situation: With Family Occupation: Lives in [place] with sister Activity level: independent ambulation - Exam General Appearance: NAD, awake alert General - other findings: Thin, mildly cachectic Eye: PERRL, anicteric sclera ENT: normocephalic atraumatic, no oropharyngeal lesions, moist mucosa Neck: supple, symmetric, no JVD, no thyromegaly, no lymphadenopathy, no carotid bruit Heart: RRR, no murmur, no gallops, no rubs, normal peripheral pulses Respiratory: CTAB, no wheezes, no rales, no ronchi, normal chest expansion, no tachypnea, normal percussion Gastrointestinal: soft, non-tender, non-distended, normal bowel sounds, no palpable masses, no hepatomegaly, no splenomegaly, no bruit Extremities: no cyanosis, no clubbing, no edema Skin: no lesions Skin - other findings: Poor turgor Neurological: cranial nerve grossly intact, normal sensation to touch, no weakness, no focal deficits Musculoskeletal: diffuse muscle atrophy Psychiatric: oriented to person, oriented to place, oriented to time Psychiatric - other findings: Patient tangential with flight of ides, affect congruent, denies SI HI. Hospitalist Results - Labs Result Diagrams: 01/18/20 15:26 01/18/20 15:26 Lab results: WBC 7.2 thou/uL (4.8-10.8) 01/18/20 15:26 Hgb 13.3 g/dL (14.0-18.0) L 01/18/20 15:26 Hct 39.0 % (42.0-52.0) L 01/18/20 15:26 MCV 92.6 fL (78.0-98.0) 01/18/20 15:26 Plt Count 181 thou/uL (130-400) 01/18/20 15:26 Neutrophils % 76.5 % (42.0-75.0) H 01/18/20 15:26 VBG pCO2 51.5 mmHg (40.0-50.0) H 01/18/20 15:34 VBG pO2 44.6 mmHg (35.0-45.0) 01/18/20 15:34 Sodium 129 mmol/L (136-145) L 01/18/20 15:26 Potassium 5.0 mmol/L (3.5-5.1) 01/18/20 15:26 Chloride 91 mmol/L (98-107) L 01/18/20 15:26 Carbon Dioxide 25 mmol/L (22-29) 01/18/20 15:26 BUN 24 mg/dL (8.4-25.7) 01/18/20 15:26 Creatinine 1.67 mg/dL (0.7-1.3) H 01/18/20 15:26 Glucose 1129 mg/dL (70-105) H* 01/18/20 15:26 Calcium 9.4 mg/dL (7.8-10.44) 01/18/20 15:26 Total Bilirubin 0.4 mg/dL (0.2-1.2) 01/18/20 15:26 AST 25 U/L (5-34) 01/18/20 15:26 ALT 22 U/L (8-55) 01/18/20 15:26 Alkaline Phosphatase 92 U/L (40-110) 01/18/20 15:26 Troponin I 0.015 ng/mL (< 0.028) 01/18/20 15:26 Serum Total Protein 7.1 g/dL (6.0-8.3) 01/18/20 15:26 Albumin 3.9 g/dL (3.5-5.0) 01/18/20 15:26 Urine Ketones Negative mg/dL (Negative) 01/18/20 16:40 Urine Blood Negative (Negative) 01/18/20 16:40 Urine Nitrite Negative (Negative) 01/18/20 16:40 Ur Leukocyte Esterase Negative Lynne/uL (Negative) 01/18/20 16:40 Hospitalist H&P A/P - Plan Plan: HHS Patient with history of type 1 diabetes mellitus presented to ER for altered mental status and nausea vomiting. Glucose found to be significant elevated to 1129. Sodium 129, potassium 5.0. Beta hydroxybutyrate negative. Patient not acidotic. No ketones in urine. Patient started on IV insulin drip at 0.1 units/kg/hr and 1 L of normal saline. Plan Every hour glucose checks Continue IV insulin drip at 5 units/hr Continue IV 1/2 NS with 20 mEq of potassium at 500 cc/hr When insulin falls below 300 will change fluids to 1 unit/h with D5 half NS at 150 cc/h -BMP q2hr Altered mental status Patient with history of schizoaffective disorder and type [address] brain negative. Chest x-ray with no acute findings. UA negative except for elevated glucose. No evidence of infection WBC 7.2,,patient afebrile with stable vital signs. Patient's altered mental status likely due to HHNK. Patient neurologically intact on exam. Patient appears to have baseline alteration mental status due to schizoaffective disorder but is alert and oriented x3. Plan q4 neuro checks Treatment as above Acute kidney injury Patient presents in HHS with BUNs/CR 24/1.67. No history of chronic kidney disease. Likely secondary to dehydration and HHS. Will replete dehydrated status with IV fluids and continue to monitor. Plan Close monitor kidney function IV fluids as above Avoid nephrotoxic agents when possible Renal dosing is appropriate Schizoaffective disorder History of schizoaffective disorder which patient follows with [facility]. Patient reports he has not seen his [facility] counselor in a while and has had trouble with transportation to appointments. On records appears patient is on Invega Sustenna and trazodone as well as trilexyphenidyl. We will continue home medications when dosages are confirmed. Patient currently denies SI/HI and is pleasant. Plan Continue psychiatric medications once dosages confirmed We will need follow-up as outpatient with [facility] Type 1 diabetes mellitus History of type 1 diabetes mellitus on medical records. Patient is on 20 units of Lantus for basal insulin as well as sliding scale mealtime dosages. Patient reports noncompliance with his insulin regimen. But does insist that he is able to manage his own medications. Plan Treatment as above Hypertension History of hypertension. Not able to find any home antihypertensive medications. Patient's blood pressure stable on admission-we will continue to monitor. Hyperlipidemia History of hyperlipidemia, will continue home simvastatin once dosage confirmed. Tobacco use History of tobacco use we will do smoking cessation counseling. DVT prophylaxisSCDs Full code Case discussed with attending physician Dr. Jamil.
[2020-01-18] MEDS ORDERED: Ondansetron PF 4 MG/2 ML Vial IVP PRN (18:35)
[2020-01-18] MEDS ORDERED: Acetaminophen 325 MG TAB PO PRN (18:35)
[2020-01-18] MEDS ORDERED: Ondansetron ODT 4 MG TAB PO PRN (18:35)
[2020-01-18] MEDS ORDERED: HUMULIN R 100 UNITS in Sodium Chloride 0.9% 100 ML IVPB SCH (19:00)
[2020-01-18 19:24] LABS: Anion Gap 15 mmol/L (10-20); BUN (Urea Nitrogen) 16 mg/dL (8.4-25.7); Calc. Creatinine Clearance 0 mL/min (70-130); Calcium 9.3 mg/dL (7.8-10.44); Carbon Dioxide 24 mmol/L (22-29); Chloride 100 mmol/L (98-107); Estimated GFR-MDRD 71; Potassium 3.8 mmol/L (3.5-5.1); Sodium 135 mmol/L (136-145)
[2020-01-18 19:28] LABS: Glucose 688 mg/dL (70-105)
[2020-01-18] MEDS ORDERED: Dextrose 50% Abboject 50 ML SYRINGE SLOW IVP PRN (19:52)
[2020-01-18] MEDS ORDERED: Dextrose 5% in Water 1,000 ML IV PRN (19:52)
[2020-01-18] MEDS: 1/2 NS w/KCL 20 mEq 1,000 ML IV SCH ×2 (20:28→21:53)
[2020-01-18] MEDS ORDERED: Lorazepam 2 MG/ML VIAL ONE (21:27)
[2020-01-18] MEDS ORDERED: Lorazepam 2 MG/ML VIAL SLOW IVP PRN (21:31)
[2020-01-18] MEDS: Lorazepam 2 MG/ML VIAL SLOW IVP PRN (21:52)
[2020-01-18 22:16] LABS: Anion Gap 15 mmol/L (10-20); BUN (Urea Nitrogen) 14 mg/dL (8.4-25.7); Calc. Creatinine Clearance 0 mL/min (70-130); Calcium 8.7 mg/dL (7.8-10.44); Carbon Dioxide 23 mmol/L (22-29); Chloride 104 mmol/L (98-107); Estimated GFR-MDRD Greater than 90; Glucose 273 mg/dL (70-105); Potassium 4.1 mmol/L (3.5-5.1); Sodium 138 mmol/L (136-145)
[2020-01-18 23:41] LABS: Anion Gap 12 mmol/L (10-20); BUN (Urea Nitrogen) 13 mg/dL (8.4-25.7); Calc. Creatinine Clearance 0 mL/min (70-130); Calcium 8.1 mg/dL (7.8-10.44); Carbon Dioxide 25 mmol/L (22-29); Chloride 105 mmol/L (98-107); Estimated GFR-MDRD Greater than 90; Glucose 194 mg/dL (70-105); Potassium 3.7 mmol/L (3.5-5.1); Sodium 138 mmol/L (136-145)
[2020-01-18] MEDS ORDERED: D5 1/2 NS w/20 mEq KCL 1,000 ML IV PRN (23:45)
[2020-01-19 01:29] LABS: Glucose 113 mg/dL (70-105)
[2020-01-19] MEDS: 1/2 NS w/KCL 20 mEq 1,000 ML IV SCH ×2 (02:23→03:45)
[2020-01-19] MEDS: Sodium Chloride 0.9% 1,000 ML IV SCH (06:18)
[2020-01-19] MEDS: Nicotine 21 MG PATCH TD SCH (08:49)
[2020-01-19] MEDS: Trihexyphenidyl 2 MG TAB PO SCH ×4 (08:49→21:26)
[2020-01-19 10:02] LABS: #Basophils 0.1 thou/uL (0.0-0.2); #Eosinphils 0.1 thou/uL (0.0-0.7); #Lymphocytes 2.3 thou/uL (1.20-3.40); #Monocytes 0.6 thou/uL (0.11-0.59); #Neutrophils 6.3 thou/uL (1.40-6.50); %Basophils 0.8 % (0.0-1.0); %Eosinophils 1.2 % (0.0-10.0); %Lymphocytes 24.4 % (21.0-51.0); %Monocytes 6.3 % (0.0-10.0); %Neutrophils 67.3 % (42.0-75.0); Hemoglobin 13.8 g/dL (14.0-18.0); Mean Corpuscular HGB CONC 34.5 g/dL (32.0-36.0); Mean Corpuscular Hemoglobin 31.2 pg (27.0-31.0); Mean Corpuscular Volume 90.4 fL (78.0-98.0); Mean Platelet Volume 8.9 fL (7.4-10.4); Platelet Count 171 thou/uL (130-400); RBC Distribution Width 12.5 % (11.5-14.5); Red Blood Cell (RBC) Count 4.43 mill/uL (4.70-6.10); White Blood Cell (WBC) Count 9.3 thou/uL (4.8-10.8)
[2020-01-19 10:10] LABS: Anion Gap 15 mmol/L (10-20); BUN (Urea Nitrogen) 9 mg/dL (8.4-25.7); Calc. Creatinine Clearance 0 mL/min (70-130); Calcium 8.3 mg/dL (7.8-10.44); Carbon Dioxide 20 mmol/L (22-29); Chloride 102 mmol/L (98-107); Estimated GFR-MDRD Greater than 90; Glucose 169 mg/dL (70-105); Potassium 4.5 mmol/L (3.5-5.1); Sodium 132 mmol/L (136-145)
[2020-01-19 13:27] LABS: Glucose 375 mg/dL (70-105)
[2020-01-19 15:46] LABS: SARS-CoV-2 MS2 Positive; SARS-CoV-2 N Gene Negative; SARS-CoV-2 S Gene Negative; SARS-CoV-2 by NAA Not Detected (NotDetected); SARS-CoV-2 orf1ab Negative
--- NOTE | 2020-01-19 15:51 | PDOC.HOSPP ---
- Subjective Encounter Date: 01/19/20 Encounter Time: 12:30 Subjective: Patient seen for follow-up regarding hyperosmolar state. He is sleepy but arousable. He is not answering questions, could not complete review of systems. - Objective Vital Signs & Weight: Vital Signs (12 hours) Temp Pulse Resp BP Pulse Ox 01/19/20 13:40 98.2 F 86 20 164/91 H 99 Result Diagrams: 01/19/20 09:26 01/19/20 12:58 Additional Labs: Accuchecks 01/19/20 01/19/20 01/19/20 04:56 02:59 02:00 POC Glucose 190 H 142 H 114 H 01/19/20 01/18/20 01/18/20 00:24 22:38 21:02 POC Glucose 101 H 254 H 462 H Labs and MAR reviewed by me Hospitalist ROS - Review of Systems ROS unobtainable: due to mental status - Medication Medications: Active Medications Generic Name Dose Route Start Last Admin Trade Name Freq PRN Reason Stop Dose Admin Sodium Chloride 1,000 mls @ 50 mls/hr 01/19/20 06:15 01/19/20 06:18 Normal Saline 0.9% IV 1,000 mls .Q20H MARQUITA Administration Lorazepam 2 mg 01/18/20 21:27 01/18/20 21:52 Lorazepam 2 Mg/Ml Vial SLOW IVP 2 mg Q6H PRN Administration Anxiety/Agitation Nicotine 21 mg 01/19/20 09:00 01/19/20 08:49 Nicotine 21 Mg Patch TD 21 mg DAILY MARQUITA Administration Trihexyphenidyl HCl 5 mg 01/19/20 09:00 01/19/20 08:49 Trihexyphenidyl 2 Mg Tab PO 5 mg QID MARQUITA Administration - Exam General Appearance: awake alert Eye: anicteric sclera ENT: no oropharyngeal lesions Neck: supple, symmetric, no thyromegaly, no lymphadenopathy Heart: RRR, no gallops, no rubs, normal peripheral pulses Respiratory: CTAB, no wheezes, no rales, no ronchi Gastrointestinal: soft, non-tender, non-distended, normal bowel sounds Extremities: no cyanosis Neurological: normal sensation to touch Musculoskeletal: normal tone Psychiatric: lethargic (Unable to assess orientation to person, place or time) Hosp A/P - Plan -Assessment/plan HHS Significantly improved with intravenous glucose and fluids. Switch to insulin sliding scale and ACH S Accu-Cheks. Altered mental status Unclear whether this is patient's baseline. Continue to monitor. Acute kidney injury Resolved Schizoaffective disorder Continue home medications. Type 1 diabetes mellitus Continue Accu-Cheks and insulin sliding scale. Hypertension History of hypertension. Not able to find any home antihypertensive medications. Patient's blood pressure stable on admission-we will continue to monitor. Hyperlipidemia Start simvastatin. Tobacco use Continue nicotine replacement therapy.
[2020-01-19] MEDS: HumaLOG 300 UNITS/3 ML VIAL SC PRN ×2 (16:51→20:07)
[2020-01-19 20:00] VITALS: BMI 18.3
[2020-01-19] MEDS: traZODone HCl 50 MG TAB PO SCH (21:25)
[2020-01-19] MEDS: Simvastatin 5 MG TAB PO SCH (21:26)
[2020-01-19] MEDS: Lorazepam 2 MG/ML VIAL SLOW IVP PRN (22:59)
[2020-01-20] MEDS ORDERED: Amlodipine 5 MG TAB PO SCH (04:15)
[2020-01-20] MEDS: HumaLOG 300 UNITS/3 ML VIAL SC PRN ×2 (06:39→16:14)
[2020-01-20 07:16] LABS: #Basophils 0.1 thou/uL (0.0-0.2); #Eosinphils 0.1 thou/uL (0.0-0.7); #Lymphocytes 2.1 thou/uL (1.20-3.40); #Monocytes 0.4 thou/uL (0.11-0.59); #Neutrophils 5.4 thou/uL (1.40-6.50); %Basophils 0.9 % (0.0-1.0); %Eosinophils 1.2 % (0.0-10.0); %Lymphocytes 25.9 % (21.0-51.0); %Monocytes 5.3 % (0.0-10.0); %Neutrophils 66.7 % (42.0-75.0); Hemoglobin 12.7 g/dL (14.0-18.0); Mean Corpuscular HGB CONC 35.1 g/dL (32.0-36.0); Mean Corpuscular Hemoglobin 31.1 pg (27.0-31.0); Mean Corpuscular Volume 88.5 fL (78.0-98.0); Mean Platelet Volume 8.7 fL (7.4-10.4); Platelet Count 180 thou/uL (130-400); RBC Distribution Width 12.4 % (11.5-14.5); Red Blood Cell (RBC) Count 4.09 mill/uL (4.70-6.10); White Blood Cell (WBC) Count 8.1 thou/uL (4.8-10.8)
[2020-01-20 07:56] LABS: Anion Gap 8 mmol/L (10-20); BUN (Urea Nitrogen) 8 mg/dL (8.4-25.7); Calc. Creatinine Clearance 82 mL/min (70-130); Calcium 7.8 mg/dL (7.8-10.44); Carbon Dioxide 29 mmol/L (22-29); Chloride 95 mmol/L (98-107); Estimated GFR-MDRD Greater than 90; Glucose 280 mg/dL (70-105); Potassium 3.9 mmol/L (3.5-5.1); Sodium 128 mmol/L (136-145)
[2020-01-20] MEDS: Sodium Chloride 0.9% 1,000 ML IV SCH ×2 (08:23→22:15)
[2020-01-20] MEDS: Nicotine 21 MG PATCH TD SCH (10:26)
[2020-01-20] MEDS: Insulin Glargine 20 UNITS in Pre-Filled Syringe 1 EACH SC SCH (10:26)
[2020-01-20] MEDS: Trihexyphenidyl 2 MG TAB PO SCH ×4 (10:26→21:42)
--- NOTE | 2020-01-20 12:31 | PDOC.HOSPP ---
- Subjective Encounter Date: 01/20/20 Encounter Time: 07:00 Subjective: Patient was seen for follow-up regarding hyperosmolar hyperglycemic state. He is sleepy but arousable, denies chest pain or shortness of breath. - Objective Vital Signs & Weight: Vital Signs (12 hours) Temp Pulse Resp BP BP Pulse Ox 01/20/20 09:30 98.2 F 81 18 113/70 96 01/20/20 04:26 84 185/96 H 01/20/20 03:55 84 18 185/96 H 01/20/20 03:30 97.6 F 88 18 181/99 H 100 Weight Admit Weight 114 lb Weight 114 lb I&O: 01/19/20 01/20/20 01/21/20 06:59 06:59 06:59 Intake Total 1000 Output Total 400 Balance 600 Result Diagrams: 01/20/20 06:58 01/20/20 06:58 Additional Labs: Accuchecks 01/20/20 01/20/20 01/19/20 11:21 05:48 19:37 POC Glucose 262 H 270 H 248 H 01/19/20 01/18/20 01/18/20 16:25 23:34 18:43 POC Glucose 349 H 149 H Greater than 500 H 01/18/20 14:39 POC Glucose Greater than 500 H I reviewed patient's labs and MAR Hospitalist ROS - Review of Systems Cardiovascular: denies: chest pain, palpitations, orthopnea, paroxysmal noc. dyspnea, edema, light headedness Gastrointestinal: denies: nausea, vomiting, abdominal pain, diarrhea, constipation, melena, hematochezia - Medication Medications: Active Medications Generic Name Dose Route Start Last Admin Trade Name Freq PRN Reason Stop Dose Admin Sodium Chloride 1,000 mls @ 50 mls/hr 01/19/20 06:15 01/20/20 08:23 Normal Saline 0.9% IV Not Given .Q20H MARQUITA Insulin Glargine 20 units/ 0.2 mls @ 0 mls/hr 01/20/20 09:00 01/20/20 10:26 Miscellaneous Medication SC 0.2 mls QAM MARQUITA Administration Insulin Human Lispro 0 units 01/19/20 06:30 01/20/20 06:39 Humalog 300 Units/3 Ml Vial SC 6 units .MODERATE SLIDING SC PRN Administration MODERATE SLIDING SCALE Protocol Lorazepam 2 mg 01/18/20 21:27 01/19/20 22:59 Lorazepam 2 Mg/Ml Vial SLOW IVP 2 mg Q6H PRN Administration Anxiety/Agitation Nicotine 21 mg 01/19/20 09:00 01/20/20 10:26 Nicotine 21 Mg Patch TD 21 mg DAILY MARQUITA Administration Ondansetron HCl 4 mg 01/18/20 18:35 01/19/20 22:58 Ondansetron Odt 4 Mg Tab PO 4 mg Q6H PRN Administration Nausea/Vomiting Simvastatin 10 mg 01/19/20 21:00 01/19/20 21:26 Simvastatin 5 Mg Tab PO 10 mg HS MARQUITA Administration Trazodone HCl 50 mg 01/19/20 21:00 01/19/20 21:25 Trazodone Hcl 50 Mg Tab PO 50 mg HS MARQUITA Administration Trihexyphenidyl HCl 5 mg 01/19/20 09:00 01/20/20 10:26 Trihexyphenidyl 2 Mg Tab PO 5 mg QID MARQUITA Administration - Exam General Appearance: awake alert Eye: anicteric sclera ENT: moist mucosa Neck: supple Heart: RRR Respiratory: CTAB Gastrointestinal: soft, non-tender Skin: no rashes Psychiatric: normal affect Hosp A/P - Plan -Assessment/plan HHS Clinically improved, now on Lantus insulin 20 units daily and insulin sliding scale. Continue Accu-Cheks. Altered mental status Improving Schizoaffective disorder Continue home medications. Type 1 diabetes mellitus Continue Accu-Cheks and insulin sliding scale. Continue Lantus insulin 20 units daily. Hypertension Controlled at this time. Hyperlipidemia Continue simvastatin. Tobacco use Patient is on nicotine replacement therapy. Acute kidney injury Resolved
[2020-01-20] MEDS: traZODone HCl 50 MG TAB PO SCH (21:44)
[2020-01-20] MEDS: Simvastatin 5 MG TAB PO SCH (21:44)
[2020-01-20] MEDS: Lorazepam 2 MG/ML VIAL SLOW IVP PRN (21:45)
[2020-01-21 04:33] LABS: #Basophils 0.1 thou/uL (0.0-0.2); #Eosinphils 0.1 thou/uL (0.0-0.7); #Lymphocytes 1.9 thou/uL (1.20-3.40); #Monocytes 0.6 thou/uL (0.11-0.59); #Neutrophils 4.9 thou/uL (1.40-6.50); %Basophils 0.8 % (0.0-1.0); %Eosinophils 1.2 % (0.0-10.0); %Lymphocytes 25.1 % (21.0-51.0); %Monocytes 8.2 % (0.0-10.0); %Neutrophils 64.7 % (42.0-75.0); Hemoglobin 12.5 g/dL (14.0-18.0); Mean Corpuscular HGB CONC 35.6 g/dL (32.0-36.0); Mean Corpuscular Hemoglobin 31.5 pg (27.0-31.0); Mean Corpuscular Volume 88.5 fL (78.0-98.0); Platelet Count 180 thou/uL (130-400); RBC Distribution Width 12.4 % (11.5-14.5); Red Blood Cell (RBC) Count 3.97 mill/uL (4.70-6.10); White Blood Cell (WBC) Count 7.5 thou/uL (4.8-10.8)
[2020-01-21 04:55] LABS: Anion Gap 11 mmol/L (10-20); BUN (Urea Nitrogen) 14 mg/dL (8.4-25.7); Calc. Creatinine Clearance 71 mL/min (70-130); Calcium 8.1 mg/dL (7.8-10.44); Carbon Dioxide 27 mmol/L (22-29); Chloride 98 mmol/L (98-107); Estimated GFR-MDRD Greater than 90; Glucose 180 mg/dL (70-105); Potassium 4.2 mmol/L (3.5-5.1); Sodium 132 mmol/L (136-145)
[2020-01-21] MEDS: HumaLOG 300 UNITS/3 ML VIAL SC PRN ×3 (07:14→20:54)
[2020-01-21] MEDS: Nicotine 21 MG PATCH TD SCH (10:27)
[2020-01-21] MEDS: Insulin Glargine 20 UNITS in Pre-Filled Syringe 1 EACH SC SCH (10:27)
[2020-01-21] MEDS: Trihexyphenidyl 2 MG TAB PO SCH ×4 (10:28→20:54)
[2020-01-21] MEDS: Lorazepam 2 MG/ML VIAL SLOW IVP PRN (15:05)
--- NOTE | 2020-01-21 16:14 | PDOC.HOSPP ---
- Subjective Encounter Date: 01/21/20 Encounter Time: 08:00 Subjective: Patient seen for follow-up regarding physical deconditioning. He denies chest pain or shortness of breath. - Objective Vital Signs & Weight: Vital Signs (12 hours) Temp Pulse Resp BP Pulse Ox 01/21/20 08:00 98.2 F 89 18 148/73 H 99 Weight Admit Weight 114 lb Weight 114 lb I&O: 01/20/20 01/21/20 01/22/20 06:59 06:59 06:59 Intake Total 1000 1820 Output Total 400 Balance 600 1820 Result Diagrams: 01/21/20 04:11 01/21/20 04:11 Additional Labs: Accuchecks 01/21/20 01/20/20 01/20/20 10:59 20:43 16:05 POC Glucose 249 H 137 H 217 H Labs and MAR reviewed by id Hospitalist ROS - Review of Systems Cardiovascular: denies: chest pain, palpitations, orthopnea, paroxysmal noc. dyspnea, edema, light headedness Gastrointestinal: denies: nausea, vomiting, abdominal pain, diarrhea, constipation, melena, hematochezia - Medication Medications: Active Medications Generic Name Dose Route Start Last Admin Trade Name Freq PRN Reason Stop Dose Admin Sodium Chloride 1,000 mls @ 50 mls/hr 01/19/20 06:15 01/20/20 22:15 Normal Saline 0.9% IV Not Given .Q20H MARQUITA Insulin Glargine 20 units/ 0.2 mls @ 0 mls/hr 01/20/20 09:00 01/21/20 10:27 Miscellaneous Medication SC 0.2 mls QAM MARQUITA Administration Insulin Human Lispro 0 units 01/19/20 06:30 01/21/20 11:12 Humalog 300 Units/3 Ml Vial SC 4 units .MODERATE SLIDING SC PRN Administration MODERATE SLIDING SCALE Protocol Lorazepam 2 mg 01/18/20 21:27 01/21/20 15:05 Lorazepam 2 Mg/Ml Vial SLOW IVP 2 mg Q6H PRN Administration Anxiety/Agitation Nicotine 21 mg 01/19/20 09:00 01/21/20 10:27 Nicotine 21 Mg Patch TD 21 mg DAILY MARQUITA Administration Ondansetron HCl 4 mg 01/18/20 18:35 01/19/20 22:58 Ondansetron Odt 4 Mg Tab PO 4 mg Q6H PRN Administration Nausea/Vomiting Simvastatin 10 mg 01/19/20 21:00 01/20/20 21:44 Simvastatin 5 Mg Tab PO 10 mg HS MARQUITA Administration Trazodone HCl 50 mg 01/19/20 21:00 01/20/20 21:44 Trazodone Hcl 50 Mg Tab PO 50 mg HS MARQUITA Administration Trihexyphenidyl HCl 5 mg 01/19/20 09:00 01/21/20 14:04 Trihexyphenidyl 2 Mg Tab PO 5 mg QID MARQUITA Administration - Exam General Appearance: awake alert ENT: moist mucosa Neck: supple Heart: RRR Respiratory: CTAB Gastrointestinal: soft, non-tender Skin: no rashes Psychiatric: normal affect, oriented to person Hosp A/P - Plan -Assessment/plan Physical deconditioning Seen by physical therapy, patient will need inpatient rehab versus fdc. Acute metabolic encephalopathy Improving Schizoaffective disorder Continue home medications. Type 1 diabetes mellitus Continue Lantus insulin 20 units daily and ISS. Hypertension Controlled and stable. Hyperlipidemia Continue simvastatin. Tobacco use Continue nicotine replacement therapy. Acute kidney injury Resolved HHS Resolved
[2020-01-21] MEDS: traZODone HCl 50 MG TAB PO SCH (20:54)
[2020-01-21] MEDS: Simvastatin 5 MG TAB PO SCH (20:54)
[2020-01-22] MEDS: Sodium Chloride 0.9% 1,000 ML IV SCH (01:34)
[2020-01-22 03:41] LABS: #Basophils 0.1 thou/uL (0.0-0.2); #Eosinphils 0.1 thou/uL (0.0-0.7); #Lymphocytes 1.7 thou/uL (1.20-3.40); #Monocytes 0.7 thou/uL (0.11-0.59); #Neutrophils 5.5 thou/uL (1.40-6.50); %Basophils 1.1 % (0.0-1.0); %Eosinophils 0.7 % (0.0-10.0); %Lymphocytes 21.4 % (21.0-51.0); %Monocytes 8.7 % (0.0-10.0); Hemoglobin 12.4 g/dL (14.0-18.0); Mean Corpuscular HGB CONC 35.4 g/dL (32.0-36.0); Mean Corpuscular Hemoglobin 31.3 pg (27.0-31.0); Mean Corpuscular Volume 88.5 fL (78.0-98.0); Mean Platelet Volume 8.5 fL (7.4-10.4); Platelet Count 170 thou/uL (130-400); RBC Distribution Width 12.5 % (11.5-14.5); Red Blood Cell (RBC) Count 3.96 mill/uL (4.70-6.10)
[2020-01-22 03:58] LABS: Anion Gap 10 mmol/L (10-20); BUN (Urea Nitrogen) 12 mg/dL (8.4-25.7); Calc. Creatinine Clearance 73 mL/min (70-130); Calcium 8.2 mg/dL (7.8-10.44); Carbon Dioxide 28 mmol/L (22-29); Chloride 100 mmol/L (98-107); Estimated GFR-MDRD Greater than 90; Glucose 141 mg/dL (70-105); Sodium 134 mmol/L (136-145)
[2020-01-22] MEDS: HumaLOG 300 UNITS/3 ML VIAL SC PRN ×2 (06:13→11:56)
[2020-01-22] MEDS: Nicotine 21 MG PATCH TD SCH (08:48)
[2020-01-22] MEDS: Trihexyphenidyl 2 MG TAB PO SCH ×4 (08:49→20:29)
[2020-01-22] MEDS: Lorazepam 2 MG/ML VIAL SLOW IVP PRN ×2 (09:13→23:25)
[2020-01-22] MEDS: Insulin Glargine 20 UNITS in Pre-Filled Syringe 1 EACH SC SCH (09:39)
--- NOTE | 2020-01-22 15:13 | PDOC.HOSPP ---
- Subjective Encounter Date: 01/22/20 Encounter Time: 07:00 Subjective: Pt seen for followup re: physical deconditioning. Denies chest pain or shortness of breath. - Objective Vital Signs & Weight: Vital Signs (12 hours) Temp Pulse Resp BP Pulse Ox 01/22/20 13:19 99 01/22/20 08:00 98.1 F 87 20 135/72 99 Weight Admit Weight 114 lb Weight 114 lb I&O: 01/21/20 01/22/20 01/23/20 06:59 06:59 06:59 Intake Total 1820 1245 Balance 1820 1245 Result Diagrams: 01/22/20 03:29 01/22/20 03:29 Additional Labs: Accuchecks 01/22/20 01/22/20 01/21/20 11:49 05:17 20:00 POC Glucose 311 H 257 H 279 H 01/21/20 16:16 POC Glucose 305 H I reviewed patient's labs and MAR Hospitalist ROS - Review of Systems Cardiovascular: denies: chest pain, palpitations, paroxysmal noc. dyspnea, edema, light headedness Gastrointestinal: denies: nausea, vomiting, diarrhea, constipation, melena, hematochezia - Medication Medications: Active Medications Generic Name Dose Route Start Last Admin Trade Name Freq PRN Reason Stop Dose Admin Insulin Glargine 20 units/ 0.2 mls @ 0 mls/hr 01/20/20 09:00 01/22/20 09:39 Miscellaneous Medication SC 0.2 mls QAM MARQUITA Administration Insulin Human Lispro 0 units 01/19/20 06:30 01/22/20 11:56 Humalog 300 Units/3 Ml Vial SC 8 units .MODERATE SLIDING SC PRN Administration MODERATE SLIDING SCALE Protocol Lorazepam 2 mg 01/18/20 21:27 01/22/20 09:13 Lorazepam 2 Mg/Ml Vial SLOW IVP 2 mg Q6H PRN Administration Anxiety/Agitation Nicotine 21 mg 01/19/20 09:00 01/22/20 08:48 Nicotine 21 Mg Patch TD 21 mg DAILY MARQUITA Administration Ondansetron HCl 4 mg 01/18/20 18:35 01/19/20 22:58 Ondansetron Odt 4 Mg Tab PO 4 mg Q6H PRN Administration Nausea/Vomiting Simvastatin 10 mg 01/19/20 21:00 01/21/20 20:54 Simvastatin 5 Mg Tab PO 10 mg HS MARQUITA Administration Trazodone HCl 50 mg 01/19/20 21:00 01/21/20 20:54 Trazodone Hcl 50 Mg Tab PO 50 mg HS MARQUITA Administration Trihexyphenidyl HCl 5 mg 01/19/20 09:00 01/22/20 13:36 Trihexyphenidyl 2 Mg Tab PO 5 mg QID MARQUITA Administration - Exam General Appearance: awake alert Eye: anicteric sclera ENT: no oropharyngeal lesions, moist mucosa Heart: RRR Respiratory: no wheezes, normal chest expansion Gastrointestinal: soft, non-tender Extremities: no cyanosis Skin: no rashes Neurological: cranial nerve grossly intact Musculoskeletal: normal tone Psychiatric: normal affect, normal behavior Hosp A/P - Plan -Assessment/plan Physical deconditioning Seen by physical therapy, patient will need inpatient rehab versus prison. Acute metabolic encephalopathy Improving Schizoaffective disorder Continue home medications. Type 1 diabetes mellitus Increase Lantus insulin to 25 units daily and ISS. Hypertension Controlled Hyperlipidemia Continue simvastatin. Tobacco use Continue nicotine replacement therapy. Acute kidney injury Resolved HHS Resolved
[2020-01-22] MEDS ORDERED: Insulin Glargine 5 UNITS in Pre-Filled Syringe SC SCH (15:30)
[2020-01-22] MEDS: traZODone HCl 50 MG TAB PO SCH (20:29)
[2020-01-22] MEDS: Simvastatin 5 MG TAB PO SCH (20:29)
[2020-01-23] MEDS: HumaLOG 300 UNITS/3 ML VIAL SC PRN ×2 (06:44→11:55)
[2020-01-23] MEDS ORDERED: Insulin Glargine 25 UNITS in Pre-Filled Syringe SC SCH (09:00)
[2020-01-23 09:11] VITALS: TEMP 98.4
[2020-01-23] MEDS: Trihexyphenidyl 2 MG TAB PO SCH ×3 (09:13→16:54)
[2020-01-23] MEDS: Nicotine 21 MG PATCH TD SCH (09:14)
[2020-01-23 09:20] VITALS: BP 160/80
--- NOTE | 2020-01-23 14:19 | PDOC.HOSPP ---
- Subjective Encounter Date: 01/23/20 Encounter Time: 07:00 Subjective: Patient seen for follow-up for physical deconditioning. He is awake in bed, not answering questions, could not complete review of systems. - Objective Vital Signs & Weight: Vital Signs (12 hours) Temp Pulse Pulse Resp BP BP Pulse Ox 01/23/20 09:20 160/80 H 01/23/20 08:49 94 181/84 H 01/23/20 08:09 95 01/23/20 08:00 98.4 F 94 20 181/84 H 96 Weight Admit Weight 114 lb Weight 114 lb I&O: 01/22/20 01/23/20 01/24/20 06:59 06:59 06:59 Intake Total 1245 970 Balance 1245 970 Result Diagrams: 01/22/20 03:29 01/22/20 03:29 Additional Labs: Accuchecks 01/23/20 01/23/20 01/22/20 11:05 05:25 22:59 POC Glucose 399 H 204 H 197 H 01/22/20 01/22/20 21:17 16:10 POC Glucose 103 H 94 Labs and MAR reviewed by tn Hospitalist ROS - Review of Systems ROS unobtainable: due to mental status - Medication Medications: Active Medications Generic Name Dose Route Start Last Admin Trade Name Freq PRN Reason Stop Dose Admin Insulin Glargine 25 units/ 0.25 mls @ 0 mls/hr 01/23/20 09:00 01/23/20 09:15 Miscellaneous Medication SC 0.25 mls QAM MARQUITA Administration Insulin Human Lispro 0 units 01/19/20 06:30 01/23/20 11:55 Humalog 300 Units/3 Ml Vial SC 10 units .MODERATE SLIDING SC PRN Administration MODERATE SLIDING SCALE Protocol Lorazepam 2 mg 01/18/20 21:27 01/22/20 23:25 Lorazepam 2 Mg/Ml Vial SLOW IVP 2 mg Q6H PRN Administration Anxiety/Agitation Nicotine 21 mg 01/19/20 09:00 01/23/20 09:14 Nicotine 21 Mg Patch TD 21 mg DAILY MARQUITA Administration Ondansetron HCl 4 mg 01/18/20 18:35 01/19/20 22:58 Ondansetron Odt 4 Mg Tab PO 4 mg Q6H PRN Administration Nausea/Vomiting Simvastatin 10 mg 01/19/20 21:00 01/22/20 20:29 Simvastatin 5 Mg Tab PO 10 mg HS MARQUITA Administration Trazodone HCl 50 mg 01/19/20 21:00 01/22/20 20:29 Trazodone Hcl 50 Mg Tab PO 50 mg HS MARQUITA Administration Trihexyphenidyl HCl 5 mg 01/19/20 09:00 01/23/20 12:38 Trihexyphenidyl 2 Mg Tab PO 5 mg QID MARQUITA Administration - Exam General Appearance: awake alert ENT: normocephalic atraumatic, no oropharyngeal lesions Neck: supple, no JVD Heart: RRR Respiratory: CTAB Gastrointestinal: soft, non-tender Skin: no rashes Psychiatric: normal affect, normal behavior Hosp A/P - Plan -Assessment/plan Physical deconditioning Patient will need inpatient rehab versus senior living, he will need to be sitter free before he can be discharged to inpatient rehab or senior living facility. Acute metabolic encephalopathy Improving, but patient receiving occasional Ativan for agitation and is needing the sitter. Schizoaffective disorder Continue home medications. Type 1 diabetes mellitus Continue Lantus insulin 25 units daily. Continue Accu-Cheks and insulin sliding scale. Hypertension Controlled Hyperlipidemia Patient is on simvastatin. Tobacco use Patient is on nicotine replacement therapy. Acute kidney injury Resolved HHS Resolved
--- NOTE | 2020-01-23 15:56 | PDOC.DS.DS ---
Provider - Provider Date of Admission: 01/18/20 17:38 Date of Discharge: 01/23/20 Admitting Provider: Facundo Jamil MD Primary Care Physician: Regan Emerson MD Course - Hospital Course Hospital Course: Discharge diagnosis: 1. Hyperosmolar hyperglycemic state 2. Physical deconditioning 3. Acute metabolic encephalopathy 4. Acute kidney injury Hospital course: Patient is a pleasant 59-year-old gentleman who was admitted to the hospital on January 18, 2020 for hyperosmolar hyperglycemic state and acute kidney injury. He improved with intravenous fluids and intravenous insulin. He was subsequently stepdown to subcutaneous insulin. He also had altered mental status and occasional episodes of agitation. She was seen by therapy services. He was recommended inpatient rehab. He is being discharged to inpatient rehab. Resuscitation Status: 01/18/20 18:35 Resuscitation Status Routine Co-Sign Provider: Resuscitation Status: FULL: Full Resuscitation Discussed with: Patient - Labs Lab Results: 01/22/20 03:29 01/22/20 03:29 Abnormal Lab Results - Last 48 hrs 01/22/20 03:29: Sodium 134 L 01/22/20 03:29: RBC 3.96 L, Hgb 12.4 L, Hct 35.1 L, MCH 31.3 H, Basophils % 1.1 H, Monocytes # 0.7 H Microbiology - Entire Visit 01/18/20 15:27 Venous blood - Left Arm Blood Culture - Preliminary NO GROWTH AT 48 HOURS 01/18/20 15:27 Venous blood - Right Arm Blood Culture - Preliminary NO GROWTH AT 48 HOURS 01/18/20 16:40 Urine voided Urine Culture - Final NO GROWTH AT 48 HOURS - Physical Exam Vitals: Vital Signs (12 hours) Temp Pulse Pulse Resp BP BP Pulse Ox 01/23/20 09:20 160/80 H 01/23/20 08:49 94 181/84 H 01/23/20 08:09 95 01/23/20 08:00 98.4 F 94 20 96 Weight Admit Weight 114 lb Weight 114 lb Physical Exam: The patient was seen and examined on the day of discharge. Please refer to my daily progress note for details regarding this [id number] encounter. Problem - Time spent with Patient (mins): 33 Plan - Discharge Medications Home Medications: Medication Instructions Recorded Confirmed Type Insulin Lispro [Humalog Kwikpen 5 units SQ TID 12/18/15 07/08/19 History U-100] Simvastatin [Zocor] 10 mg PO HS tab 04/16/19 07/08/19 Rx Paliperidone Palmitate [Invega 1 each SQ ASDIR 07/03/19 07/08/19 History Sustenna] Trihexyphenidyl HCl 1 tab PO QID 07/03/19 07/08/19 History traZODone HCl [Desyrel] 50 mg PO HS 07/03/19 07/08/19 History Insulin Glargine [Lantus Vial] 25 units SC QAM vial 01/23/20 Rx Nicotine [Nicoderm CQ] 21 mg TD DAILY patch 01/23/20 Rx Allergies: Penicillins Allergy (Verified 01/19/20 19:13) Short of Breath - Discharge Instructions Discharge Instructions:: See patient discharge instruction sheet for detailed teaching. Patient verbalize s understanding of medications and is able to verbalize follow-up care. See Discharge Plan for additional discharge information. Patient secured in private vehicle prior to departure.FOCUS: Transition from Acute Care after Discharge GOAL: Successful transition to care in the community YOUR TASKS: (1) review all information outlined in your discharge packet (2) follow any instructions outlined in your discharge packet (3) contact your primary care provider if you have questions or need additional assistance Activity:: Activity as Tolerated Nourishment:: Diabetic Diet, Heart Healthy Diet - Follow up Plan Referrals: Regan Emerson MD [Primary Care Provider] - 7 Days Disposition: HOME Quality - Care Measures CORE MEASURES:: N/A
--- NOTE | 2020-01-25 15:56 | EKG ---
Test Reason : Blood Pressure : / mmHG Vent. Rate : 098 BPM Atrial Rate : 098 BPM P-R Int : 146 ms QRS Dur : 082 ms QT Int : 340 ms P-R-T Axes : 072 085 066 degrees QTc Int : 434 ms Sinus rhythm with Premature atrial complexes Otherwise normal ECG Confirmed by RADHA OLSON ([id number]), design editor NILS MENON ([id number]) on 01/25/2020 3:55:47 PM Referred By: Confirmed By:RADHA OLSON
== END 2020-01-23 20:08 | DRG 637 ==
LOC: ERS 14:27 → ERHOLD 17:38 → ONC 01-19 13:40
PROVIDERS: ADMIT Internal Medicine; ATTEND Internal Medicine
DX: E10.69 Type 1 diabetes mellitus with other specified complication (principal); G93.41 Metabolic encephalopathy; Z20.828 Contact with and (suspected) exposure to other viral communicable diseases; R64 Cachexia; N17.9 Acute kidney failure, unspecified; E78.5 Hyperlipidemia, unspecified; I10 Essential (primary) hypertension; F25.8 Other schizoaffective disorders; F17.210 Nicotine dependence, cigarettes, uncomplicated; E86.0 Dehydration; Z68.1 Body mass index [BMI] 19.9 or less, adult; Z88.0 Allergy status to penicillin; Z79.4 Long term (current) use of insulin; Z79.899 Other long term (current) drug therapy
CPT/HCPCS: 36415; 36416; 70450; 71045; 80048; 80053; 80306; 80307; 81003; 82010; 82330; 82803; 83735; 83930; 84443; 84484; 85025; 87040; 87086; 87635; 93005; J1815; J2060; J2405; J3480; Q0162; U0003

== ENCOUNTER 2020-03-01 11:10 | Inpatient (IN) | payer OTHER ==
[2020-03-01] MEDS ORDERED: Ondansetron PF 4 MG/2 ML Vial ONE (11:28)
[2020-03-01] MEDS ORDERED: Insulin Regular 300 UNITS/3 ML VIAL ONE (11:28)
--- NOTE | 2020-03-01 11:40 | CT ---
Exam: Head CT without contrast HISTORY: Altered mental status. Hyperglycemia. COMPARISON: 01/18/2020 FINDINGS: Hemorrhage: No intraparenchymal hemorrhage or extra-axial hematoma. Brain parenchyma: Cortical childs-white matter differentiation is preserved. No mass effect or midline shift. Basilar cisterns are patent.White matter hypodensities due to chronic small vessel ischemic change. Ventricular system: Ventricles and sulci are patent and symmetric. Calvarium: Intact. Sinuses and mastoid air cells: Adequate aeration sinuses and mastoid air cells. Stable osteoid osteom a in the midline sinuses. IMPRESSION: No acute intracranial process.
--- NOTE | 2020-03-01 11:45 | RAD ---
Exam: Chest one view HISTORY:Altered mental status Comparison: 01/18/2020 FINDINGS: Cardiac silhouette: Normal Aorta: Stable atherosclerosis Pulmonary vessels: Normal Costophrenic angles: Clear LUNGS: Probable minimal infiltrate in the right lower lobe. Pneumothorax: None Osseous abnormalities: None IMPRESSION: Minimal right lower lobe infiltrate.
[2020-03-01 11:50] LABS: #Basophils 0.1 thou/uL (0.0-0.2); #Eosinphils 0.2 thou/uL (0.0-0.7); #Monocytes 0.7 thou/uL (0.11-0.59); #Neutrophils 6.3 thou/uL (1.40-6.50); %Basophils 0.9 % (0.0-1.0); %Eosinophils 1.7 % (0.0-10.0); %Lymphocytes 21.8 % (21.0-51.0); %Monocytes 7.9 % (0.0-10.0); %Neutrophils 67.7 % (42.0-75.0); Hemoglobin 12.4 g/dL (14.0-18.0); Mean Corpuscular HGB CONC 35.3 g/dL (32.0-36.0); Mean Corpuscular Hemoglobin 31.1 pg (27.0-31.0); Mean Platelet Volume 9.6 fL (7.4-10.4); Platelet Count 172 thou/uL (130-400); RBC Distribution Width 12.4 % (11.5-14.5); Red Blood Cell (RBC) Count 3.99 mill/uL (4.70-6.10); White Blood Cell (WBC) Count 9.3 thou/uL (4.8-10.8)
[2020-03-01 12:04] LABS: ALT (SGPT) 20 U/L (8-55); AST (SGOT) 17 U/L (5-34); Albumin 3.7 g/dL (3.5-5.0); Alkaline Phosphatase 103 U/L (40-110); Anion Gap 15 mmol/L (10-20); BUN (Urea Nitrogen) 20 mg/dL (8.4-25.7); Bilirubin, Total 0.3 mg/dL (0.2-1.2); Calc. Creatinine Clearance 0 mL/min (70-130); Calcium 8.6 mg/dL (7.8-10.44); Carbon Dioxide 26 mmol/L (22-29); Chloride 96 mmol/L (98-107); Potassium 4.5 mmol/L (3.5-5.1); Protein, Total 6.7 g/dL (6.0-8.3); Sodium 132 mmol/L (136-145)
[2020-03-01 12:11] LABS: CK (CPK) 102 U/L (30-200); Lipase 86 U/L (8-78); Phosphorus 3.8 mg/dL (2.3-4.7)
[2020-03-01 12:12] LABS: Glucose 639 mg/dL (70-105)
[2020-03-01] MEDS ORDERED: cefTRIAXone\\ROCEPHIN 2 GM VIAL ONE (12:16)
[2020-03-01] MEDS ORDERED: Sodium Chloride 0.9% 100 ML ONE (12:16)
[2020-03-01 12:21] LABS: Bilirubin Negative (Negative); Blood, Urine Negative (Negative); Clarity Clear (Clear); Glucose, Urine (Dipstick) Greater than 1000 mg/dL (Negative); Ketone, Urine Negative (Negative); Leukocyte Negative Leu/uL (Negative); Nitrite Negative (Negative); Protein, Urine (Dipstick) Negative (Neg-Trace); Specific Gravity, Urine 1.029 (1.002-1.036); Urobilinogen Normal mg/dL (Less than 2); pH, Urine 5.5 (5.0-9.0)
[2020-03-01] MEDS ORDERED: INSULIN REGULAR IN 0.9 % NACL 100 UNIT in Premix Bag 1 BAG IVPB SCH (13:00)
[2020-03-01] MEDS ORDERED: Azithromycin 500 MG in Sodium Chloride 0.9% 250 ML 250 ML IVPB SCH (13:00)
[2020-03-01] MEDS ORDERED: NS 0.9% w/ 20 MEQ KCL 1,000 ML IV SCH (13:00)
[2020-03-01] MEDS ORDERED: INSULIN REGULAR IN 0.9 % NACL 100 UNIT/100 ML BAG ONE (13:01)
[2020-03-01] MEDS ORDERED: Azithromycin 500 MG VIAL ONE (13:07)
[2020-03-01 13:22] LABS: Amphetamine Not Detected (NotDetected); Barbiturates Screen Not Detected (NotDetected); Benzodiazepine Screen Not Detected (NotDetected); Cocaine Metabolite Screen Not Detected (NotDetected); Medtox Control Line Valid? VALID (VALID); Medtox Reader # READER 4; Methadone Not Detected (NotDetected); Methamphetamine Not Detected (NotDetected); Opiate Screen Not Detected (NotDetected); Oxycodone Screen Not Detected (NotDetected); Phencyclidine (PCP) Not Detected (NotDetected); THC/Cannabinoid Screen Not Detected (NotDetected); Tricyclic Screen Not Detected (NotDetected)
[2020-03-01 14:17] LABS: Acetaminophen Less than 6.0 mcg/mL (10.0-30.0); Alcohol Less than 10 mg/dL (Less than 10); Salicylate Less than 8.0 mg/dL (15.0-30.0)
[2020-03-01] MEDS ORDERED: HumaLOG 300 UNITS/3 ML VIAL SC PRN ×2 (17:19)
[2020-03-01] MEDS ORDERED: Dextrose 50% Abboject 50 ML SYRINGE SLOW IVP PRN (17:19)
[2020-03-01] MEDS ORDERED: Dextrose 5% in Water 1,000 ML IV PRN (17:19)
[2020-03-01] MEDS ORDERED: Acetaminophen 325 MG TAB PO PRN (17:19)
[2020-03-01] MEDS ORDERED: hydrALAZINE 20 MG/ML VIAL SLOW IVP PRN (17:24)
--- NOTE | 2020-03-01 17:55 | HP ---
CHIEF COMPLAINT: Altered mental status. PRIMARY CARE PROVIDER: Unknown. HISTORY OF PRESENT ILLNESS: This is a 59-year-old male with history of type 1 diabetes, on insulin, based on chart review, schizoaffective disorder, dyslipidemia, hypertension, history of substance abuse, who presents to the emergency room with the complaint of altered mental status. This was brought to the attention of the staff by his sister who states that he has been confused. Nursing staff also report being told that the patient had a large meal last night with lots of sugar and refused to take his insulin. The patient was noted to have a decreased mentation on his arrival, which has improved today. On my first evaluation, he said that he wanted to go home and did not want to stay. He has remained in the emergency room on an insulin drip due to an initial blood sugar of 639 throughout the day and he is agreeable to stay in the hospital. He denies any problems. In the emergency room, initial blood sugar was 639. He received 10 units of regular insulin subcutaneous, 1 L of normal saline, 8 mg of Zofran, 2 g of ceftriaxone, 500 mg of azithromycin, normal saline with potassium, and started on insulin drip, and hospitalist called for admission. No other history is available from the patient. PAST MEDICAL HISTORY: Based on chart review, 1. Type 1 diabetes, on insulin. 2. Schizoaffective disorder. 3. History of substance abuse. 4. Hypertension. 5. Dyslipidemia. PAST SURGICAL HISTORY: Based on chart review, none listed. FAMILY HISTORY: Not obtainable. SOCIAL HISTORY: By chart review, smokes cigarettes, history of cocaine and marijuana use, and lives with his family. REVIEW OF SYSTEMS: Not obtainable. CURRENT MEDICATIONS: Not obtainable. Based on chart review from his last admission in January of 2020, the patient was discharged on, 1. Lantus 25 units once daily. 2. Nicotine patch 21 mg daily. 3. Lispro 5 units 3 times a day. 4. Simvastatin 10 mg at bedtime. 5. Trihexyphenidyl 1 tablet 4 times a day. 6. Paliperidone subcutaneous every 4 weeks. 7. Trazodone 50 mg at bedtime. ALLERGIES: PENICILLIN. PHYSICAL EXAMINATION: VITAL SIGNS: Blood pressure 169/98, pulse 85, respirations 17, saturation is 99% on room air, temperature earlier today 97.9. GENERAL: He is awake, alert, not in apparent distress, occasionally will respond to a question with a simple answer. HEENT: Pupils are equal and round. Oral mucosa is pink and moist. NECK: Supple, nontender. LYMPHATICS: No palpable cervical or supraclavicular lymphadenopathy. LUNGS: Clear to auscultation bilateral. No audible wheezing, rhonchi, or rales. HEART: Normal S1, S2. Regular rate and rhythm. No significant murmur. ABDOMEN: Soft with present bowel sounds. Nontender, nondistended. EXTREMITIES: No edema, clubbing, or cyanosis. VASCULAR: 2+ radial pulses. PSYCHIATRIC: Unable to adequately assess, the patient with very limited responses to questions. I am uncertain if this is his baseline. NEUROLOGIC: No focal deficits noted. LABORATORY DATA: Reviewed. CBC; 9.3, 12.4, 35.1, 172. Chemistry; 132, 4.5, 96, 26, 20, 1.23, 639. LFTs negative. Ammonia 16. Lipase 86. Serum osmolality 306, which is elevated. Brain CT performed today is negative for an acute process. Chest x-ray personally reviewed, minimal right lower lobe infiltrate. EKG, personally reviewed, right axis deviation, sinus rhythm, normal intervals, no ST changes, abnormal R-wave progression. IMPRESSION: 1. Hyperosmolar hyperglycemic state secondary to type 1 diabetes, inadequately treated. 2. Possible right lower lobe infiltrate. 3. Schizoaffective disorder. 4. Hypertension. 5. Anemia. 6. Dyslipidemia. PLAN: 1. Admission to the hospital. 2. Last blood sugar was 281. We will transition over to long-acting insulin with sliding scale insulin and continue IV fluid hydration with monitoring blood sugars. 3. We will continue the azithromycin and the ceftriaxone. 4. Obtain accurate home medication list to know what the patient needs to be on here. 5. PRN medications for hypertension. 6. Outpatient evaluation for the anemia. 7. Anticipated length of stay is 2 midnights on the basis of where the patient is at currently with his presenting blood sugars to make sure that they are adequately treated and his mental status returned to normal. 8. DVT prophylaxis with SCDs. 9. GI prophylaxis, not indicated. He will be written for carb-consistent diet. 10. Code status is full. Will need to determine the surrogate decision maker. 11. The patient is at high risk given age comorbidities and current presentation. Job ID: [id number]
[2020-03-01 17:57] LABS: Anion Gap 14 mmol/L (10-20); BUN (Urea Nitrogen) 18 mg/dL (8.4-25.7); Calc. Creatinine Clearance 0 mL/min (70-130); Calcium 8.4 mg/dL (7.8-10.44); Carbon Dioxide 25 mmol/L (22-29); Chloride 104 mmol/L (98-107); Glucose 198 mg/dL (70-105); Potassium 4.5 mmol/L (3.5-5.1); Sodium 138 mmol/L (136-145)
[2020-03-01 20:28] LABS: SARS-CoV-2 NAA Rapid Test Not Detected (NotDetected)
[2020-03-01] MEDS: Sodium Chloride 0.9% 1,000 ML IV SCH (20:52)
[2020-03-01 20:53] VITALS: BMI 17.7
[2020-03-01] MEDS ORDERED: Insulin Glargine 20 UNITS in Pre-Filled Syringe 1 EACH SC SCH (21:00)
[2020-03-02 04:02] LABS: #Basophils 0.1 thou/uL (0.0-0.2); #Eosinphils 0.2 thou/uL (0.0-0.7); #Lymphocytes 2.4 thou/uL (1.20-3.40); #Monocytes 0.7 thou/uL (0.11-0.59); #Neutrophils 5.1 thou/uL (1.40-6.50); %Basophils 0.7 % (0.0-1.0); %Eosinophils 2.6 % (0.0-10.0); %Lymphocytes 28.1 % (21.0-51.0); %Monocytes 8.7 % (0.0-10.0); Hemoglobin 11.9 g/dL (14.0-18.0); Mean Corpuscular Volume 88.1 fL (78.0-98.0); Mean Platelet Volume 9.9 fL (7.4-10.4); Platelet Count 206 thou/uL (130-400); RBC Distribution Width 12.4 % (11.5-14.5); Red Blood Cell (RBC) Count 3.98 mill/uL (4.70-6.10); White Blood Cell (WBC) Count 8.5 thou/uL (4.8-10.8)
[2020-03-02] MEDS: Sodium Chloride 0.9% 1,000 ML IV SCH (05:54)
[2020-03-02 07:23] VITALS: TEMP 97.6
[2020-03-02] MEDS ORDERED: cefTRIAXone\\ROCEPHIN 1 GM in Sodium Chloride 0.9% 100 ML IVPB SCH (12:00)
[2020-03-02] MEDS ORDERED: Azithromycin 500 MG in Sodium Chloride 0.9% 250 ML 250 ML IVPB SCH (13:00)
--- NOTE | 2020-03-02 16:10 | PDOC.DS.DS ---
Provider - Provider Date of Admission: 03/01/20 13:45 Admitting Provider: Malika Dewey MD Primary Care Physician: Regan Emerson MD Course - Hospital Course Hospital Course: 59-year-old male with a history of type I admitted with hyperosmolar hyperglycemic state secondary to noncompliance and suboptimally controlled diabetes. He did not require any insulin drip on an floor. His electrolyte panel seems to be in the normal range including bicarb of 25. His blood glucose were was still not controlled and ranging around 200-400 range. However patient is not amenable for further stay and management. He is screaming to wanting to go home and states that the admitting doctor told him that he will be discharged today. He is not willing to listen to me as he needs more titration of his insulin regimen as well as adequate blood pressure control. I have seen him in the past. Patient is known for his noncompliance with healthcare advice as well as nonadherence to the medications as well as diet. Patient will be discharged today. Discharge time over 30 minutes. Resuscitation Status: 03/01/20 17:19 Resuscitation Status Routine Resuscitation Status: FULL: Full Resuscitation - Labs Lab Results: 03/02/20 03:29 03/01/20 17:32 Abnormal Lab Results - Last 48 hrs 03/01/20 11:22: Ammonia 16 L 03/01/20 11:26: Sodium 132 L, Chloride 96 L 03/01/20 11:26: Lipase 86 H 03/01/20 11:26: RBC 3.99 L, Hgb 12.4 L, Hct 35.1 L, MCH 31.1 H, Monocytes # 0.7 H 03/01/20 11:26: Salicylates Less than 8.0 L, Acetaminophen Less than 6.0 L 03/01/20 11:30: Serum Osmolality 306 H 03/01/20 11:59: Urine Glucose (UA) Greater than 1000 A 03/02/20 03:29: RBC 3.98 L, Hgb 11.9 L, Hct 35.1 L, Monocytes # 0.7 H Microbiology - Entire Visit 03/01/20 11:59 Urine voided Urine Culture - Preliminary 03/01/20 12:15 Venous blood - Right Arm Blood Culture - Preliminary Specimen has been received and culture in progress. No Growth to date. 03/01/20 12:15 Venous blood - Right Arm Blood Culture - Preliminary Specimen has been received and culture in progress. No Growth to date. - Physical Exam Vitals: Vital Signs (12 hours) Temp 03/02/20 11:08 97.6 F 03/02/20 07:23 97.6 F Weight Weight 116 lb 14.4 oz Most Recent Monitor Data Heart Rate from ECG 89 NIBP 163/99 NIBP BP-Mean 120 Respiration from ECG 18 SpO2 100 Physical Exam: The patient was seen and examined on the day of discharge. Boltno is so stubborn of wanting to go home his blood pressure is systolic around 118 the monitor. Patient has underlying history schizophrenia. And he is known for noncompliance with his medications and diet he admitted with hyperosmolar hyperglycemia Is off the insulin drip when he is transferred to [facility]. His anion gap closed. he started on diabetic diet. Plan - Discharge Medications Home Medications: Medication Instructions Recorded Confirmed Type Insulin Lispro [Humalog Kwikpen 5 units SQ TID 12/18/15 07/08/19 History U-100] Simvastatin [Zocor] 10 mg PO HS tab 04/16/19 07/08/19 Rx Paliperidone Palmitate [Invega 1 each SQ ASDIR 07/03/19 07/08/19 History Sustenna] Trihexyphenidyl HCl 1 tab PO QID 07/03/19 07/08/19 History traZODone HCl [Desyrel] 50 mg PO HS 07/03/19 07/08/19 History Insulin Glargine [Lantus Vial] 25 units SC QAM vial 01/23/20 Rx Nicotine [Nicoderm CQ] 21 mg TD DAILY patch 01/23/20 Rx Allergies: Penicillins Allergy (Verified 01/19/20 19:13) Short of Breath - Discharge Instructions Discharge Instructions:: PCP follow up in 1 week Activity:: Activity as Tolerated Nourishment:: Diabetic Diet - Follow up Plan Referrals: Regan Emerson MD [Primary Care Provider] - Disposition: HOME Quality - Care Measures CORE MEASURES:: N/A
[2020-03-02] MEDS ORDERED: Prevnar 13-Val Conj/PF 0.5 ML SYRINGE IM ONE (21:00)
[2020-03-02] MEDS ORDERED: FLU VACC QS2020-21(6MOS UP)/PF 60 MCG/0.5 ML SYRINGE IM ONE (21:00)
--- NOTE | 2020-03-03 13:46 | PQF ---
CLINICAL DOCUMENTATION CLARIFICATION FORM: Dear Dr. Jessica Yap Date: 03.03.20 Please exercise your independent, professional judgment in responding to the clarification form. Clinical indicators are provided on the bottom of this form for your review. Please check appropriate box(es) to clarify if the following diagnosis has been ruled in our ruled out: Pneumonia [ ] Ruled in diagnosis [ ] Continue to treat [ ] Resolved [ x] Ruled out diagnosis [ ] Improving [ ] Cannot rule out diagnosis [ ] Other diagnosis [ ] Unable to determine For continuity of documentation, please document condition throughout progress notes and discharge summary. Thank You. To be completed by CDI/Coding staff for physician review: CLINICAL INDICATORS - SIGNS / SYMPTOMS / LABS / RESULTS AND LOCATION IN ED: HHS; AMS; PNA 03.01 CXR: Probable minimal infiltrate in the RLL 03.01 H&P ([place]): * Hyperosmolar hyperglycemic state d/t DM1; possible RLL infiltrate; AMS * initial BS 639 RISK FACTORS / RESULTS AND LOCATION IN 03.01 H&P ([place]) * DM1; schizoaffective disorder; HTN;; TREATMENTS / RESULTS AND LOCATION IN ED: Azithromycin IV; Ceftriaxone IV; NS 1L IV; CDS Signature: Keerthi Orlando RN, CCDS Phone #: [phone] [email or web address] This is a permanent part of the Medical Record [facility]
--- NOTE | 2020-03-04 17:21 | PQF ---
Dear : Jessica Yap Date 03/04/2020 Please exercise your independent, professional judgment in responding to the clarification form. Clinical indicators are provided on the bottom of this form for your review Can you please further clarify the diagnosis of the patient? Please check appropriate box(es): [ x ] Metabolic Encephalopathy [ ] Toxic Encephalopathy [ ] Hypertensive Encephalopathy [ ] Transient Alteration of Awareness [ ] Other diagnosis please specify [ ] Unable to determine Physician Signature: Date/Time: For continuity of documentation, please document condition throughout progress notes and discharge summary. Thank You. To be completed by CDI/Coding staff for physician review: Present Clinical Indicators - Signs / Symptoms / Labs Results and Location in Medical Record [ x ] Complaint of altered mental status H and P pg.1 [ x ] Initial blood sugar of 639 H and P pg.1 [ x ] confused H and P pg.1 [ x ] Refused to take insulin H and P pg.1 [ x ] BP: 159/92, 138/86, 159/86, 178/104, 177/101, 178/100, 163/99 Vital sign [ x ] POC Glucose: 459H, 228H, 244H, 469H, 402H, 231H Laboratory Present Risk Factors Results and Location in Medical Record [ x ] Substance abuse H and P pg.1 [ x ] HTN H and P pg.1 [ x ] Schizoaffective disorder H and P pg.1 [ x ] dyslipidemia H and P pg.1 [ x ] Smokes cigarettes H and P pg.1 [ x ] Hyperosmolar, hyperglycemic state H and P pg.2 [ x ] Non compliance DS pg.1 Present Treatments Results and Location in Medical Record [ x ] IV Hydration H and P pg.3 [ x ] Blood glucose monitoring Laboratory [ x ] IV Antibiotics MAR [ x ] PRN Medication for hypertension H and P pg.3 [ x ] Insulin 300units MAR [ x ] HumaLOG SC MAR [ x ] Lantus 20units MAR CDS/[employer] Supervisor Signature: Blu Tsang Phone #: ext [phone] Date 03/05/2020 This is a permanent part of the Medical Record [facility]
== END 2020-03-02 12:25 | disposition home or self-care (01) | DRG 637 ==
LOC: ERS 11:10 → IMCU/EMU 13:45
PROVIDERS: ADMIT Family Medicine; ATTEND Internal Medicine
DX: E10.10 Type 1 diabetes mellitus with ketoacidosis without coma (principal); G93.41 Metabolic encephalopathy; Z20.828 Contact with and (suspected) exposure to other viral communicable diseases; F20.9 Schizophrenia, unspecified; E78.5 Hyperlipidemia, unspecified; I10 Essential (primary) hypertension; F17.210 Nicotine dependence, cigarettes, uncomplicated; D64.9 Anemia, unspecified; Z79.4 Long term (current) use of insulin; Z91.14 Patient's other noncompliance with medication regimen; Z88.0 Allergy status to penicillin; Z79.899 Other long term (current) drug therapy
CPT/HCPCS: 0240U; 36415; 36416; 70450; 71045; 80053; 80306; 80307; 81003; 82010; 82140; 82550; 83605; 83690; 83735; 83930; 84100; 84484; 85007; 85025; 85027; 87040; 87086; 93005; 96365; 96366; 96367; 96368; 96375; J0360; J0456; J0696; J1815; J2405; J3480; J3490

== ENCOUNTER 2020-07-28 11:59 | Inpatient (IN) | payer OTHER ==
[~2020-07-28 11:59] MED LIST: Iopamidol-370 76% 500 ML 1 ML ONE
[2020-07-28 13:11] LABS: #Eosinphils 0.1 thou/uL (0.0-0.7); #Lymphocytes 1.4 thou/uL (1.20-3.40); #Monocytes 0.7 thou/uL (0.11-0.59); #Neutrophils 17.3 thou/uL (1.40-6.50); %Eosinophils 0.3 % (0.0-10.0); %Lymphocytes 7.4 % (21.0-51.0); %Monocytes 3.4 % (0.0-10.0); %Neutrophils 88.9 % (42.0-75.0); Hemoglobin 14.6 g/dL (14.0-18.0); Mean Corpuscular HGB CONC 34.4 g/dL (32.0-36.0); Mean Corpuscular Hemoglobin 29.4 pg (27.0-31.0); Mean Corpuscular Volume 85.6 fL (78.0-98.0); Mean Platelet Volume 10.7 fL (7.4-10.4); Platelet Count 200 thou/uL (130-400); RBC Distribution Width 13.6 % (11.5-14.5); Red Blood Cell (RBC) Count 4.96 mill/uL (4.70-6.10); White Blood Cell (WBC) Count 19.5 thou/uL (4.8-10.8)
[2020-07-28 13:17] LABS: Actual Bicarbonate (HCO3v) 29 mEq/L (22-28); Analyzer IN Cardio ER; Base Excess 2.9 mEq/L (-2.0 to +3.0); Calcium, Ionized (venous) 1.25 mmol/L (1.16-1.32); Chloride (VBG) 105 mmol/L (98-106); Hemoglobin (Hb) 15.5 g/dL (13.1-17.2); pH (venous) 7.39 (7.32-7.43)
[2020-07-28] MEDS ORDERED: Ondansetron PF 4 MG/2 ML Vial IVP PRN (14:00)
[2020-07-28] MEDS ORDERED: Ondansetron ODT 4 MG TAB SL PRN (14:00)
[2020-07-28] MEDS ORDERED: Acetaminophen 325 MG TAB PO PRN (14:00)
[2020-07-28 14:11] LABS: ALT (SGPT) 23 U/L (8-55); AST (SGOT) 23 U/L (5-34); Albumin 4.3 g/dL (3.5-5.0); Alkaline Phosphatase 114 U/L (40-110); Anion Gap 21 mmol/L (10-20); BUN (Urea Nitrogen) 33 mg/dL (8.4-25.7); Bilirubin, Total 0.8 mg/dL (0.2-1.2); Calc. Creatinine Clearance 0 mL/min (70-130); Calcium 10.9 mg/dL (7.8-10.44); Carbon Dioxide 27 mmol/L (22-29); Chloride 104 mmol/L (98-107); Globulin 3.7 g/dL (2.4-3.5); Lipase 59 U/L (8-78); Magnesium 2.6 mg/dL (1.6-2.6); Potassium 5.4 mmol/L (3.5-5.1); Sodium 147 mmol/L (136-145)
[2020-07-28] MEDS ORDERED: cefTRIAXone\\ROCEPHIN 2 GM VIAL ONE (14:13)
[2020-07-28 14:14] LABS: Glucose 670 mg/dL (70-105)
[2020-07-28 15:41] LABS: Glucose 594 mg/dL (70-105)
[2020-07-28] MEDS ORDERED: Vancomycin 1 GM/200 ML BAG ONE (15:52)
[2020-07-28 16:16] LABS: Bilirubin Negative (Negative); Blood, Urine Negative (Negative); Clarity Clear (Clear); Glucose, Urine (Dipstick) Greater than 1000 mg/dL (Negative); Ketone, Urine 20 mg/dL (Negative); Leukocyte Negative Leu/uL (Negative); Nitrite Negative (Negative); Protein, Urine (Dipstick) 10 mg/dL (Neg-Trace); Specific Gravity, Urine 1.042 (1.002-1.036); Urobilinogen Normal mg/dL (Less than 2)
[2020-07-28] MEDS ORDERED: Insulin Regular 300 UNITS/3 ML VIAL ONE (16:40)
[2020-07-28] MEDS ORDERED: INSULIN REGULAR IN 0.9 % NACL 100 UNIT/100 ML BAG ONE (17:50)
[2020-07-28 17:57] LABS: Troponin I 0.017 ng/mL (< 0.028)
[2020-07-28] MEDS ORDERED: Dextrose 50% Abboject 50 ML SYRINGE SLOW IVP PRN (19:24)
[2020-07-28] MEDS ORDERED: Sodium Chloride 0.9% 1,000 ML IV PRN ×8 (19:26→19:30)
[2020-07-28] MEDS ORDERED: D5 1/2 NS w/20 mEq KCL 1,000 ML IV PRN (19:26)
[2020-07-28] MEDS ORDERED: Electrolyte Replacement Protocol 1 EACH IVPB ONE (19:26)
[2020-07-28] MEDS ORDERED: NS 0.9% w/ 20 MEQ KCL 1,000 ML IV PRN ×2 (19:26)
[2020-07-28] MEDS ORDERED: Dextrose 5 %-0.45 % NaCl 1,000 ML IV PRN ×2 (19:26→19:30)
[2020-07-28] MEDS ORDERED: NS 0.9% w/ 20 MEQ KCL 1,000 ML/1,000 ML BAG IV PRN ×2 (19:30)
[2020-07-28] MEDS ORDERED: HUMULIN R 100 UNITS in Sodium Chloride 0.9% 100 ML IVPB SCH ×2 (19:30→20:30)
[2020-07-28] MEDS ORDERED: Insulin Regular 300 UNITS/3 ML VIAL IVP SCH (19:30)
[2020-07-28] MEDS ORDERED: ADD ELECTROLYTE REPLACEMENT SET TO PROFILE FS SCH (19:30)
[2020-07-28] MEDS ORDERED: Dextrose 5% in Water 1,000 ML IV PRN (19:30)
[2020-07-28 19:31] LABS: SARS-CoV-2 NAA Rapid Test Not Detected (NotDetected)
[2020-07-28 19:52] VITALS: BMI 16.7
[2020-07-28 20:31] LABS: Anion Gap 14 mmol/L (10-20); BUN (Urea Nitrogen) 25 mg/dL (8.4-25.7); Calc. Creatinine Clearance 56 mL/min (70-130); Calcium 9.3 mg/dL (7.8-10.44); Carbon Dioxide 24 mmol/L (22-29); Chloride 116 mmol/L (98-107); Glucose 365 mg/dL (70-105); Sodium 150 mmol/L (136-145)
[2020-07-28 20:36] LABS: Troponin I 0.023 ng/mL (< 0.028)
[2020-07-29 00:31] LABS: Anion Gap 16 mmol/L (10-20); BUN (Urea Nitrogen) 21 mg/dL (8.4-25.7); Calc. Creatinine Clearance 65 mL/min (70-130); Calcium 9.3 mg/dL (7.8-10.44); Carbon Dioxide 20 mmol/L (22-29); Chloride 118 mmol/L (98-107); Glucose 232 mg/dL (70-105); Potassium 4.4 mmol/L (3.5-5.1); Sodium 150 mmol/L (136-145)
[2020-07-29] MEDS: D5 1/2 NS w/20 mEq KCL 1,000 ML IV PRN ×2 (03:10→07:39)
[2020-07-29 04:19] LABS: Anion Gap 13 mmol/L (10-20); BUN (Urea Nitrogen) 21 mg/dL (8.4-25.7); Calc. Creatinine Clearance 68 mL/min (70-130); Carbon Dioxide 20 mmol/L (22-29); Chloride 118 mmol/L (98-107); Glucose 180 mg/dL (70-105); Sodium 146 mmol/L (136-145)
[2020-07-29] MEDS: Enoxaparin Sodium 40 MG/0.4 ML SYRINGE SC SCH (07:39)
[2020-07-29] MEDS ORDERED: PALIPERIDONE PALMITATE 117 MG/0.75 ML IV SCH (08:00)
[2020-07-29] MEDS ORDERED: [UNRECOGNIZED DRUG - OTHER] IV SCH (08:00)
[2020-07-29] MEDS ORDERED: Dextrose 50% Abboject 50 ML SYRINGE SLOW IVP PRN (08:31)
[2020-07-29] MEDS ORDERED: Dextrose 5% in Water 1,000 ML IV PRN (08:31)
[2020-07-29] MEDS: Lantus 1000 UNITS/10 ML VIAL SC SCH (09:32)
[2020-07-29] MEDS: Trihexyphenidyl 2 MG TAB PO SCH ×4 (09:32→20:35)
[2020-07-29] MEDS: Insulin Regular 300 UNITS/3 ML VIAL SC PRN (11:31)
[2020-07-29] MEDS ORDERED: Insulin Regular 300 UNITS/3 ML VIAL SC PRN (20:10)
[2020-07-29] MEDS ORDERED: traZODone HCl 50 MG TAB PO SCH (21:00)
[2020-07-29] MEDS ORDERED: Simvastatin 5 MG TAB PO SCH (21:00)
[2020-07-30 04:01] LABS: #Eosinphils 0.1 thou/uL (0.0-0.7); #Lymphocytes 1.7 thou/uL (1.20-3.40); #Monocytes 0.4 thou/uL (0.11-0.59); #Neutrophils 8.3 thou/uL (1.40-6.50); %Basophils 0.4 % (0.0-1.0); %Eosinophils 0.6 % (0.0-10.0); %Monocytes 3.9 % (0.0-10.0); %Neutrophils 79.1 % (42.0-75.0); Hemoglobin 12.5 g/dL (14.0-18.0); Mean Corpuscular HGB CONC 34.7 g/dL (32.0-36.0); Mean Corpuscular Hemoglobin 29.9 pg (27.0-31.0); Mean Corpuscular Volume 86.3 fL (78.0-98.0); Mean Platelet Volume 9.9 fL (7.4-10.4); Platelet Count 178 thou/uL (130-400); RBC Distribution Width 13.6 % (11.5-14.5); Red Blood Cell (RBC) Count 4.19 mill/uL (4.70-6.10); White Blood Cell (WBC) Count 10.5 thou/uL (4.8-10.8)
[2020-07-30 04:07] LABS: Anion Gap 11 mmol/L (10-20); BUN (Urea Nitrogen) 9 mg/dL (8.4-25.7); Calc. Creatinine Clearance 81 mL/min (70-130); Carbon Dioxide 23 mmol/L (22-29); Chloride 99 mmol/L (98-107); Glucose 207 mg/dL (70-105); Potassium 4.1 mmol/L (3.5-5.1); Sodium 129 mmol/L (136-145)
[2020-07-30] MEDS: Insulin Regular 300 UNITS/3 ML VIAL SC PRN ×2 (07:15→11:04)
[2020-07-30] MEDS: Trihexyphenidyl 2 MG TAB PO SCH ×2 (08:34→13:24)
[2020-07-30] MEDS: Enoxaparin Sodium 40 MG/0.4 ML SYRINGE SC SCH (08:34)
[2020-07-30] MEDS: Lantus 1000 UNITS/10 ML VIAL SC SCH (08:34)
[2020-07-30 16:18] VITALS: TEMP 98.3
== END 2020-07-30 16:03 | disposition home or self-care (01) | DRG 682 ==
LOC: ERS 11:59 → IMCU/EMU 17:09
PROVIDERS: ADMIT Internal Medicine; ATTEND Hospitalist
DX: N17.9 Acute kidney failure, unspecified (principal); G93.41 Metabolic encephalopathy; I63.81 Other cerebral infarction due to occlusion or stenosis of small artery; E87.0 Hyperosmolality and hypernatremia; Z68.1 Body mass index [BMI] 19.9 or less, adult; E10.65 Type 1 diabetes mellitus with hyperglycemia; E87.5 Hyperkalemia; E78.5 Hyperlipidemia, unspecified; I10 Essential (primary) hypertension; Z20.822 Contact with and (suspected) exposure to COVID-19; F20.9 Schizophrenia, unspecified; R62.7 Adult failure to thrive; Z88.0 Allergy status to penicillin; Z87.891 Personal history of nicotine dependence; Z91.14 Patient's other noncompliance with medication regimen
CPT/HCPCS: 0240U; 36415; 36416; 70450; 71045; 74177; 80048; 80053; 81003; 82010; 82805; 83605; 83690; 83735; 84484; 85025; 87040; 87086; 93005; 96365; 96366; 96367; 96375; J0696; J1650; J1815; J3370; J3480; Q9967

== ENCOUNTER 2020-08-03 07:21 | Emergency (ER) | payer OTHER ==
[2020-08-03 07:51] LABS: Actual Bicarbonate (HCO3v) 28 mEq/L (22-28); Analyzer IN Cardio ER; Base Excess 4.8 mEq/L (-2.0 to +3.0); Calcium, Ionized (venous) 0.94 mmol/L (1.16-1.32); Chloride (VBG) 91 mmol/L (98-106); Hemoglobin (Hb) 12.2 g/dL (13.1-17.2); Potassium (VBG) 4.51 mmol/L (3.70-5.30); Sodium 122.8 mmol/L (133-146); pH (venous) 7.52 (7.32-7.43)
[2020-08-03 07:52] LABS: #Basophils 0.1 thou/uL (0.0-0.2); #Eosinphils 0.1 thou/uL (0.0-0.7); #Lymphocytes 1.7 thou/uL (1.20-3.40); #Monocytes 0.7 thou/uL (0.11-0.59); #Neutrophils 6.7 thou/uL (1.40-6.50); %Basophils 0.6 % (0.0-1.0); %Eosinophils 0.7 % (0.0-10.0); %Lymphocytes 18.7 % (21.0-51.0); %Monocytes 7.5 % (0.0-10.0); %Neutrophils 72.4 % (42.0-75.0); Hemoglobin 11.4 g/dL (14.0-18.0); Mean Corpuscular HGB CONC 34.9 g/dL (32.0-36.0); Mean Corpuscular Hemoglobin 30.5 pg (27.0-31.0); Mean Corpuscular Volume 87.3 fL (78.0-98.0); Mean Platelet Volume 10.1 fL (7.4-10.4); Platelet Count 172 thou/uL (130-400); RBC Distribution Width 13.3 % (11.5-14.5); Red Blood Cell (RBC) Count 3.75 mill/uL (4.70-6.10); White Blood Cell (WBC) Count 9.2 thou/uL (4.8-10.8)
[2020-08-03 08:14] LABS: ALT (SGPT) 18 U/L (8-55); AST (SGOT) 19 U/L (5-34); Albumin 3.1 g/dL (3.5-5.0); Alkaline Phosphatase 85 U/L (40-110); Anion Gap 13 mmol/L (10-20); BUN (Urea Nitrogen) 21 mg/dL (8.4-25.7); Bilirubin, Total 0.4 mg/dL (0.2-1.2); CK (CPK) 190 U/L (30-200); Calc. Creatinine Clearance 0 mL/min (70-130); Calcium 8.1 mg/dL (7.8-10.44); Carbon Dioxide 27 mmol/L (22-29); Chloride 91 mmol/L (98-107); Globulin 2.4 g/dL (2.4-3.5); Lipase 114 U/L (8-78); Potassium 4.8 mmol/L (3.5-5.1); Protein, Total 5.5 g/dL (6.0-8.3); Sodium 126 mmol/L (136-145)
[2020-08-03 08:17] LABS: Bilirubin Negative (Negative); Blood, Urine Negative (Negative); Clarity Clear (Clear); Glucose, Urine (Dipstick) Greater than 1000 mg/dL (Negative); Ketone, Urine Negative (Negative); Leukocyte Negative Leu/uL (Negative); Nitrite Negative (Negative); Protein, Urine (Dipstick) Negative (Neg-Trace); Specific Gravity, Urine 1.025 (1.002-1.036); Urobilinogen Normal mg/dL (Less than 2)
[2020-08-03 08:22] LABS: Glucose 701 mg/dL (70-105)
[2020-08-03 08:38] LABS: Acetaminophen Less than 6.0 mcg/mL (10.0-30.0); Alcohol Less than 10 mg/dL (Less than 10); Salicylate Less than 8.0 mg/dL (15.0-30.0)
[2020-08-03] MEDS ORDERED: Insulin Regular 300 UNITS/3 ML VIAL ONE (08:40)
[2020-08-03 09:27] LABS: Amphetamine Not Detected (NotDetected); Barbiturates Screen Not Detected (NotDetected); Benzodiazepine Screen Not Detected (NotDetected); Cocaine Metabolite Screen Not Detected (NotDetected); Medtox Control Line Valid? VALID (VALID); Medtox Reader # READER 1; Methadone Not Detected (NotDetected); Methamphetamine Not Detected (NotDetected); Opiate Screen Not Detected (NotDetected); Oxycodone Screen Not Detected (NotDetected); Phencyclidine (PCP) Not Detected (NotDetected); THC/Cannabinoid Screen Not Detected (NotDetected); Tricyclic Screen Not Detected (NotDetected)
== END 2020-08-03 09:20 | disposition home or self-care (01) ==
LOC: ERS 07:21
DX: E10.65 Type 1 diabetes mellitus with hyperglycemia (principal); E78.5 Hyperlipidemia, unspecified; I10 Essential (primary) hypertension; F17.290 Nicotine dependence, other tobacco product, uncomplicated
CPT/HCPCS: 36415; 36416; 71045; 80053; 80306; 80307; 81003; 82010; 82550; 82805; 83690; 83880; 84484; 85025; 93005; 96374; J1815

== ENCOUNTER 2020-08-11 14:39 | Observation (INO) | payer OTHER ==
[2020-08-11 15:41] LABS: Bilirubin Negative (Negative); Blood, Urine Negative (Negative); Glucose, Urine (Dipstick) >=1000 mg/dL (Negative); Ketone, Urine 15 mg/dL (Negative); Leukocyte Negative (Negative); Nitrite Negative (Negative); Protein, Urine (Dipstick) Negative (Neg-Trace); Urobilinogen 0.2 mg/dL (Less than 2); pH, Urine 6.5 (5.0-9.0)
[2020-08-11 15:46] LABS: #Eosinphils 0.1 thou/uL (0.0-0.7); #Lymphocytes 1.3 thou/uL (1.20-3.40); #Monocytes 0.5 thou/uL (0.11-0.59); #Neutrophils 6.5 thou/uL (1.40-6.50); %Basophils 0.4 % (0.0-1.0); %Eosinophils 0.9 % (0.0-10.0); %Lymphocytes 15.1 % (21.0-51.0); %Monocytes 6.3 % (0.0-10.0); %Neutrophils 77.3 % (42.0-75.0); Hemoglobin 11.5 g/dL (14.0-18.0); Mean Corpuscular HGB CONC 34.7 g/dL (32.0-36.0); Mean Corpuscular Hemoglobin 30.1 pg (27.0-31.0); Mean Corpuscular Volume 86.8 fL (78.0-98.0); Platelet Count 168 thou/uL (130-400); RBC Distribution Width 14.2 % (11.5-14.5); Red Blood Cell (RBC) Count 3.83 mill/uL (4.70-6.10); White Blood Cell (WBC) Count 8.4 thou/uL (4.8-10.8)
[2020-08-11 15:46] LABS: Bacteria/HPF None Seen HPF (None Seen); Clarity Clear (Clear); RBC/HPF 0-3 HPF (0-3); Squamous Epithelial None Seen HPF (0-3); WBC/HPF 0-3 HPF (0-3)
[2020-08-11 16:07] LABS: Phosphorus 3.2 mg/dL (2.3-4.7)
[2020-08-11 16:12] LABS: ALT (SGPT) 18 U/L (8-55); AST (SGOT) 18 U/L (5-34); Albumin 3.4 g/dL (3.5-5.0); Alkaline Phosphatase 99 U/L (40-110); Anion Gap 18 mmol/L (10-20); BUN (Urea Nitrogen) 15 mg/dL (8.4-25.7); Bilirubin, Total 0.4 mg/dL (0.2-1.2); Calc. Creatinine Clearance 0 mL/min (70-130); Calcium 8.4 mg/dL (7.8-10.44); Carbon Dioxide 23 mmol/L (22-29); Chloride 97 mmol/L (98-107); Globulin 3.2 g/dL (2.4-3.5); Lipase 61 U/L (8-78); Magnesium 1.8 mg/dL (1.6-2.6); Potassium 4.5 mmol/L (3.5-5.1); Protein, Total 6.6 g/dL (6.0-8.3); Sodium 133 mmol/L (136-145)
[2020-08-11 16:18] LABS: Glucose 573 mg/dL (70-105)
[2020-08-11] MEDS ORDERED: Insulin Regular 300 UNITS/3 ML VIAL ONE (17:15)
[2020-08-11] MEDS ORDERED: Dextrose 50% Abboject 50 ML SYRINGE SLOW IVP PRN (17:20)
[2020-08-11] MEDS ORDERED: Dextrose 5% in Water 1,000 ML IV PRN (17:20)
[2020-08-11] MEDS ORDERED: Ondansetron ODT 4 MG TAB PO PRN (17:21)
[2020-08-11] MEDS ORDERED: Calcium Carbonate 500 MG ChewTAB PO PRN (17:21)
[2020-08-11] MEDS ORDERED: Ondansetron PF 4 MG/2 ML Vial IVP PRN (17:21)
[2020-08-11] MEDS ORDERED: Senokot S 8.6-50 MG TAB PO PRN (17:21)
[2020-08-11] MEDS ORDERED: cloNIDine 0.1 MG TAB PO PRN (17:23)
[2020-08-11] MEDS ORDERED: Electrolyte Replacement Protocol 1 EACH FS SCH (17:30)
[2020-08-11] MEDS ORDERED: Electrolyte Replacement Protocol FS PRN (17:30)
[2020-08-11] MEDS ORDERED: Magnesium 2 GM/50 ML 2 GM in Premix Bag 1 BAG IVPB SCH (17:30)
[2020-08-11] MEDS ORDERED: Lantus 1000 UNITS/10 ML VIAL SC SCH (21:00)
[2020-08-11] MEDS ORDERED: cloNIDine 0.1 MG TAB PO SCH (21:00)
[2020-08-11 21:04] VITALS: BMI 16.7
[2020-08-11] MEDS: Famotidine 20 MG TAB PO SCH (21:06)
[2020-08-11] MEDS: Sodium Chloride 0.9% 1,000 ML IV SCH ×2 (21:06→23:26)
[2020-08-11] MEDS: Insulin Regular 300 UNITS/3 ML VIAL SC PRN (21:07)
[2020-08-11 21:32] LABS: Phosphorus 2.5 mg/dL (2.3-4.7)
[2020-08-12] MEDS: Insulin Regular 300 UNITS/3 ML VIAL SC PRN ×3 (05:33→20:07)
[2020-08-12] MEDS: Sodium Chloride 0.9% 1,000 ML IV SCH ×3 (05:33→17:40)
[2020-08-12 06:20] LABS: Hemoglobin A1c Greater than 14.0 % (4.0-6.0)
[2020-08-12 06:29] LABS: Anion Gap 11 mmol/L (10-20); BUN (Urea Nitrogen) 12 mg/dL (8.4-25.7); Calc. Creatinine Clearance 80 mL/min (70-130); Carbon Dioxide 21 mmol/L (22-29); Chloride 103 mmol/L (98-107); Glucose 245 mg/dL (70-105); Magnesium 1.9 mg/dL (1.6-2.6); Phosphorus 2.7 mg/dL (2.3-4.7); Potassium 4.1 mmol/L (3.5-5.1); Sodium 131 mmol/L (136-145)
[2020-08-12] MEDS ORDERED: Magnesium 2 GM/50 ML 2 GM in Premix Bag 1 BAG IVPB SCH (07:00)
[2020-08-12] MEDS: Famotidine 20 MG TAB PO SCH ×2 (11:36→20:02)
[2020-08-12] MEDS: Acetaminophen 325 MG TAB PO PRN ×2 (11:39→20:03)
[2020-08-12] MEDS: Lantus 1000 UNITS/10 ML VIAL SC SCH (13:39)
[2020-08-12 18:23] LABS: SARS-CoV-2 PCR by NAA Not Detected (NotDetected)
[2020-08-12] MEDS ORDERED: Lorazepam 0.5 MG TAB PO PRN (19:09)
[2020-08-12] MEDS ORDERED: Lorazepam 2 MG/ML VIAL SLOW IVP PRN (19:10)
[2020-08-12] MEDS ORDERED: traZODone HCl 50 MG TAB PO PRN (21:22)
[2020-08-13] MEDS: Sodium Chloride 0.9% 1,000 ML IV SCH (00:18)
[2020-08-13 07:39] VITALS: BP 162/89; TEMP 97.6
[2020-08-13] MEDS: Famotidine 20 MG TAB PO SCH (09:08)
[2020-08-13] MEDS: Lantus 1000 UNITS/10 ML VIAL SC SCH (09:08)
[2020-08-13 10:02] LABS: Anion Gap 9 mmol/L (10-20); BUN (Urea Nitrogen) 9 mg/dL (8.4-25.7); Calc. Creatinine Clearance 82 mL/min (70-130); Calcium 7.8 mg/dL (7.8-10.44); Carbon Dioxide 24 mmol/L (22-29); Chloride 103 mmol/L (98-107); Glucose 178 mg/dL (70-105); Potassium 4.1 mmol/L (3.5-5.1); Sodium 132 mmol/L (136-145)
== END 2020-08-13 12:01 | disposition home or self-care (01) ==
LOC: ERS 14:39 → T4-B 17:21
PROVIDERS: ADMIT Internal Medicine; ATTEND Internal Medicine
DX: E10.65 Type 1 diabetes mellitus with hyperglycemia (principal); E83.42 Hypomagnesemia; E87.1 Hypo-osmolality and hyponatremia; E78.5 Hyperlipidemia, unspecified; I10 Essential (primary) hypertension; D53.9 Nutritional anemia, unspecified; Z87.891 Personal history of nicotine dependence; Z91.14 Patient's other noncompliance with medication regimen; Z79.899 Other long term (current) drug therapy; Z88.0 Allergy status to penicillin; Z20.822 Contact with and (suspected) exposure to COVID-19
CPT/HCPCS: 36415; 36416; 80048; 80053; 81003; 82010; 83036; 83605; 83690; 83735; 84100; 84484; 85025; 93005; 96365; 96372; 96375; 96376; G0378; J1815; J2060; J3475; U0003; U0005

== ENCOUNTER 2020-09-01 10:03 | Emergency (ER) | payer OTHER ==
[2020-09-01 10:56] LABS: Actual Bicarbonate (HCO3v) 28 mEq/L (22-28); Base Excess 5.8 mEq/L (-2.0 to +3.0); Calcium, Ionized (venous) 0.98 mmol/L (1.16-1.32); Chloride (VBG) 94 mmol/L (98-106); Hemoglobin (Hb) 11.5 g/dL (13.1-17.2); Potassium (VBG) 4.04 mmol/L (3.70-5.30); Sodium 126.8 mmol/L (133-146); pH (venous) 7.55 (7.32-7.43)
[2020-09-01 11:01] LABS: #Basophils 0.1 thou/uL (0.0-0.2); #Eosinphils 0.1 thou/uL (0.0-0.7); #Lymphocytes 1.3 thou/uL (1.20-3.40); #Monocytes 0.4 thou/uL (0.11-0.59); #Neutrophils 4.9 thou/uL (1.40-6.50); %Basophils 0.8 % (0.0-1.0); %Eosinophils 1.3 % (0.0-10.0); %Lymphocytes 19.1 % (21.0-51.0); %Neutrophils 72.8 % (42.0-75.0); Hemoglobin 13.6 g/dL (14.0-18.0); Mean Corpuscular HGB CONC 35.5 g/dL (32.0-36.0); Mean Corpuscular Hemoglobin 30.9 pg (27.0-31.0); Mean Corpuscular Volume 87.1 fL (78.0-98.0); Mean Platelet Volume 9.5 fL (7.4-10.4); Platelet Count 209 thou/uL (130-400); RBC Distribution Width 13.8 % (11.5-14.5); Red Blood Cell (RBC) Count 4.39 mill/uL (4.70-6.10); White Blood Cell (WBC) Count 6.7 thou/uL (4.8-10.8)
[2020-09-01 11:10] LABS: Analyzer IN Cardio ER
[2020-09-01 11:52] LABS: Albumin 3.4 g/dL (3.5-5.0)
[2020-09-01 11:53] LABS: Calcium 8.7 mg/dL (7.8-10.44); Chloride 93 mmol/L (98-107); Potassium 4.3 mmol/L (3.5-5.1); Sodium 130 mmol/L (136-145)
[2020-09-01 11:54] LABS: Globulin 2.8 g/dL (2.4-3.5); Glucose 472 mg/dL (70-105); Protein, Total 6.2 g/dL (6.0-8.3)
[2020-09-01 11:56] LABS: Anion Gap 19 mmol/L (10-20); Bilirubin, Total 0.4 mg/dL (0.2-1.2); Carbon Dioxide 22 mmol/L (22-29)
[2020-09-01 11:57] LABS: Alkaline Phosphatase 114 U/L (40-110)
[2020-09-01 11:58] LABS: BUN (Urea Nitrogen) 13 mg/dL (8.4-25.7); Calc. Creatinine Clearance 0 mL/min (70-130)
[2020-09-01 11:59] LABS: AST (SGOT) 19 U/L (5-34)
[2020-09-01 12:00] LABS: ALT (SGPT) 12 U/L (8-55)
== END 2020-09-01 13:30 | disposition home or self-care (01) ==
LOC: ERS 10:03
DX: E10.65 Type 1 diabetes mellitus with hyperglycemia (principal); I10 Essential (primary) hypertension; E78.5 Hyperlipidemia, unspecified; F17.210 Nicotine dependence, cigarettes, uncomplicated
CPT/HCPCS: 36415; 36416; 71045; 80053; 82010; 82805; 84484; 85025; 87040; 87149